=== PATIENT | male | born 1950 | race Caucasian/White ===

== ENCOUNTER → 2018-10-08 | Outpatient (CLI) | payer OTHER, MEDICARE ==
[~2018-10-08] MED LIST: ALLO100 PO; Azor 10-20 MG1 EACH; DOCU100 PO; FURO20 PO; INSULANPEN; LISI20 PO; Omeprazole20 M1; PROC5 PO; SUCR1 PO
[2018-10-08 16:13] LABS: BASOPHILS ABSOLUTE AUTO 0.02 K/mm3 (0.00-0.23); BASOPHILS PERCENT AUTO 1 % (0-2); EOSINOPHILS ABSOLUTE AUTO 0.06 K/mm3 (0.00-0.68); EOSINOPHILS PERCENT AUTO 2 % (0-6); Hematocrit 39.4 % (37.0-53.0); Hemoglobin 13.5 g/dL (13.5-17.5); IMMATURE GRAN ABSOLUTE AUTO 0.03 K/mm3 (0.00-0.10); IMMATURE GRAN PERCENT AUTO 1 % (0-1); LYMPHOCYTES ABSOLUTE AUTO 1.08 K/mm3 (0.84-5.20); LYMPHOCYTES PERCENT AUTO 42 % (21-46); MONOCYTES ABSOLUTE AUTO 0.06 K/mm3 (0.16-1.47); MONOCYTES PERCENT AUTO 2 % (4-13); Mean Corpuscular HGB Conc 34.3 g/dL (31.5-36.5); Mean Corpuscular Volume 88 fL (80-100); Mean Platelet Volume 11.3 fL (9.1-12.4); NEUTROPHILS ABSOLUTE AUTO 1.35 K/mm3 (1.96-9.15); NEUTROPHILS PERCENT AUTO 52 % (41-73); Platelet Count 153 K/mm3 (150-400); RDW Coefficient Variation 12.3 % (11.7-14.2); RDW Standard Deviation 39.5 fL (35.1-46.3)
[2018-10-08 16:30] LABS: Alanine Aminotransfer (ALT/SGP 82 U/L (12-78); Albumin, Blood 2.6 g/dL (3.4-5.0); Albumin/Globulin Ratio 0.6 (0.8-1.8); Alk Phos 133 U/L (50-136); Anion Gap 8 mmol/L (6-16); Aspartate Aminotrans (AST/SGOT 39 U/L (12-37); Bilirubin, Total 0.7 mg/dL (0.1-1.0); Blood Urea Nitrogen 21 mg/dL (8-24); Bun/Creatinine Ratio 27.6 (12.0-20.0); CO2, Blood 27 mmol/L (21-32); Calcium, Blood 8.9 mg/dL (8.5-10.1); Chloride, Blood 97 mmol/L (98-108); Creatinine, Blood 0.76 mg/dL (0.60-1.20); Globulin, Blood 4.1 g/dL (2.2-4.0); Glomerular Filtration Rate >60 (60-); Glucose, Blood 149 mg/dL (70-99); Potassium, Blood 3.7 mmol/L (3.5-5.5); Sodium, Blood 132 mmol/L (136-145); Total Protein, Blood 6.7 g/dL (6.4-8.2)
== END | disposition home or self-care (01) ==
LOC: LAB 15:36 → LAB SHORT 15:36
PROVIDERS: Internal Medicine Hematology & Oncology
DX: C25.1 Malignant neoplasm of body of pancreas (principal); R18.0 Malignant ascites; C78.6 Secondary malignant neoplasm of retroperitoneum and peritoneum; C77.2 Secondary and unspecified malignant neoplasm of intra-abdominal lymph nodes
CPT/HCPCS: 80053; 85025

== ENCOUNTER → 2018-10-09 | Outpatient (CLI) | payer OTHER, MEDICARE ==
[2018-10-09 16:42] LABS: International Normalized Ratio 1.14; Prothrombin Time Results 11.7 Sec (9.7-11.5)
== END | disposition home or self-care (01) ==
LOC: LAB SHORT 15:57 → LAB 15:57
PROVIDERS: Internal Medicine Hematology & Oncology
DX: Z79.01 Long term (current) use of anticoagulants (principal); Z51.81 Encounter for therapeutic drug level monitoring; C78.6 Secondary malignant neoplasm of retroperitoneum and peritoneum; C77.2 Secondary and unspecified malignant neoplasm of intra-abdominal lymph nodes; C25.1 Malignant neoplasm of body of pancreas; R18.0 Malignant ascites
CPT/HCPCS: 85610; 85730

== ENCOUNTER 2018-10-10 14:57 | Day surgery (SDC) | payer OTHER, MEDICARE | END 2018-10-10 22:54 | disposition home or self-care (01) | LOC: US 14:57 | PROC: 0W9G3ZZ Drainage of Peritoneal Cavity, Percutaneous Approach (ICD-10-PCS; principal; 2018-10-10) | DX: R18.0 Malignant ascites (principal) | CPT/HCPCS: 49083 ==

== ENCOUNTER 2018-10-12 11:58 | Emergency (ER) | payer SELFPAY ==
[~2018-10-12] VITALS: Ht 180.3 cm; Wt 111.1 kg
[2018-10-12] MEDS ORDERED: ALLO100 PO (12:27)
[2018-10-12] MEDS ORDERED: Azor 10-20 MG1 EACH (12:27)
[2018-10-12] MEDS ORDERED: FURO20 PO (12:28)
[2018-10-12] MEDS ORDERED: LISI20 PO (12:28)
[2018-10-12] MEDS ORDERED: DOCU100 PO (12:28)
[2018-10-12] MEDS ORDERED: INSULANPEN (12:28)
[2018-10-12] MEDS ORDERED: SUCR1 PO (12:29)
[2018-10-12] MEDS ORDERED: Omeprazole20 M1 (12:29)
[2018-10-12] MEDS ORDERED: PROC5 PO (12:29)
[2018-10-12 13:47] LABS: BASOPHILS ABSOLUTE AUTO 0.04 K/mm3 (0.00-0.23); BASOPHILS PERCENT AUTO 1 % (0-2); EOSINOPHILS ABSOLUTE AUTO 0.09 K/mm3 (0.00-0.68); EOSINOPHILS PERCENT AUTO 3 % (0-6); Hematocrit 38.8 % (37.0-53.0); IMMATURE GRAN ABSOLUTE AUTO 0.05 K/mm3 (0.00-0.10); IMMATURE GRAN PERCENT AUTO 2 % (0-1); LYMPHOCYTES ABSOLUTE AUTO 1.44 K/mm3 (0.84-5.20); LYMPHOCYTES PERCENT AUTO 45 % (21-46); MONOCYTES ABSOLUTE AUTO 0.49 K/mm3 (0.16-1.47); MONOCYTES PERCENT AUTO 16 % (4-13); Mean Corpuscular HGB 30.2 pg (26.0-34.0); Mean Corpuscular HGB Conc 33.5 g/dL (31.5-36.5); Mean Corpuscular Volume 90 fL (80-100); Mean Platelet Volume 10.9 fL (9.1-12.4); NEUTROPHILS ABSOLUTE AUTO 1.06 K/mm3 (1.96-9.15); NEUTROPHILS PERCENT AUTO 33 % (41-73); Platelet Count 93 K/mm3 (150-400); RDW Coefficient Variation 12.6 % (11.7-14.2); RDW Standard Deviation 41.4 fL (35.1-46.3); White Blood Cell Count 3.17 K/mm3 (4.00-11.30)
[2018-10-12 14:01] LABS: Alanine Aminotransfer (ALT/SGP 139 U/L (12-78); Albumin, Blood 2.2 g/dL (3.4-5.0); Albumin/Globulin Ratio 0.6 (0.8-1.8); Alk Phos 161 U/L (50-136); Anion Gap 7 mmol/L (6-16); Aspartate Aminotrans (AST/SGOT 92 U/L (12-37); Bilirubin, Total 0.3 mg/dL (0.1-1.0); Blood Urea Nitrogen 19 mg/dL (8-24); Bun/Creatinine Ratio 26.6 (12.0-20.0); CO2, Blood 27 mmol/L (21-32); Calcium, Blood 7.8 mg/dL (8.5-10.1); Chloride, Blood 103 mmol/L (98-108); Creatinine, Blood 0.72 mg/dL (0.60-1.20); Globulin, Blood 3.6 g/dL (2.2-4.0); Glomerular Filtration Rate >60 (60-); Glucose, Blood 124 mg/dL (70-99); Potassium, Blood 3.4 mmol/L (3.5-5.5); Sodium, Blood 137 mmol/L (136-145); Total Protein, Blood 5.8 g/dL (6.4-8.2)
[2018-10-12 14:43] LABS: International Normalized Ratio 1.17; Prothrombin Time Results 11.9 Sec (9.7-11.5)
== END 2018-10-12 19:30 | disposition home or self-care (01) ==
LOC: ER 11:58
PROVIDERS: Emergency Medicine; Physician Assistant
DX: R18.8 Other ascites (principal); C25.9 Malignant neoplasm of pancreas, unspecified; Z88.8 Allergy status to other drugs, medicaments and biological substances; Z79.899 Other long term (current) drug therapy; Z79.4 Long term (current) use of insulin
CPT/HCPCS: 49083; 80053; 83690; 85025; 85610; 85730; 93005; 93010; J1170; J2405; P9041

== ENCOUNTER 2018-10-14 00:12 | Day surgery (SDC) | payer OTHER | END 2018-10-14 22:44 | disposition home or self-care (01) | LOC: US 00:12 | DX: C25.1 Malignant neoplasm of body of pancreas (principal); C78.6 Secondary malignant neoplasm of retroperitoneum and peritoneum; R18.0 Malignant ascites; C77.2 Secondary and unspecified malignant neoplasm of intra-abdominal lymph nodes | CPT/HCPCS: 49083 ==

== ENCOUNTER 2018-10-18 14:43 | Day surgery (SDC) | payer OTHER ==
[2018-11-18] MEDS ORDERED: CHEMOTHERAPY (11:25)
[2018-11-28] MEDS ORDERED: ALLO100 PO (13:07)
[2018-11-28] MEDS ORDERED: LISI20 PO (13:10)
[2018-11-28] MEDS ORDERED: DOCU100 PO (13:10)
[2018-11-28] MEDS ORDERED: AMLO10 PO (13:12)
[2018-11-28] MEDS ORDERED: OXYC5 PO (13:13)
[2018-11-28] MEDS ORDERED: BENADRYL25 MG PO (13:14)
[2018-11-28] MEDS ORDERED: NAPR220 PO (13:15)
[2018-11-28] MEDS ORDERED: Omeprazole20 M1 PO (13:16)
[2018-11-28] MEDS ORDERED: METO10 PO (13:17)
[2018-11-28] MEDS ORDERED: CRANBERRY250 MG PO (13:18)
[2018-11-28] MEDS ORDERED: ERGO400 PO (13:18)
[2018-11-28] MEDS ORDERED: Multivitamin1 EAC1 PO (13:19)
[2018-11-28] MEDS ORDERED: HEP LOCK F IV (13:20)
[2018-11-28] MEDS ORDERED: SUCR1 PO (13:31)
[2018-11-28] MEDS ORDERED: Lomotil Tablet1 EACH PO (13:34)
== END 2018-10-18 23:04 | disposition home or self-care (01) ==
LOC: US 14:43
DX: C78.6 Secondary malignant neoplasm of retroperitoneum and peritoneum (principal); R18.0 Malignant ascites; C25.1 Malignant neoplasm of body of pancreas; C77.2 Secondary and unspecified malignant neoplasm of intra-abdominal lymph nodes; K86.81 Exocrine pancreatic insufficiency
CPT/HCPCS: 49083

== ENCOUNTER 2018-10-25 13:44 | Day surgery (SDC) | payer OTHER ==
[2018-11-18] MEDS ORDERED: CHEMOTHERAPY (11:25)
[2018-11-28] MEDS ORDERED: ALLO100 PO (13:07)
[2018-11-28] MEDS ORDERED: LISI20 PO (13:10)
[2018-11-28] MEDS ORDERED: DOCU100 PO (13:10)
[2018-11-28] MEDS ORDERED: AMLO10 PO (13:12)
[2018-11-28] MEDS ORDERED: OXYC5 PO (13:13)
[2018-11-28] MEDS ORDERED: BENADRYL25 MG PO (13:14)
[2018-11-28] MEDS ORDERED: NAPR220 PO (13:15)
[2018-11-28] MEDS ORDERED: Omeprazole20 M1 PO (13:16)
[2018-11-28] MEDS ORDERED: METO10 PO (13:17)
[2018-11-28] MEDS ORDERED: ERGO400 PO (13:18)
[2018-11-28] MEDS ORDERED: CRANBERRY250 MG PO (13:18)
[2018-11-28] MEDS ORDERED: Multivitamin1 EAC1 PO (13:19)
[2018-11-28] MEDS ORDERED: HEP LOCK F IV (13:20)
[2018-11-28] MEDS ORDERED: SUCR1 PO (13:31)
[2018-11-28] MEDS ORDERED: Lomotil Tablet1 EACH PO (13:34)
== END 2018-10-25 22:40 | disposition home or self-care (01) ==
LOC: US 13:44
DX: C25.1 Malignant neoplasm of body of pancreas (principal); R18.0 Malignant ascites; C78.6 Secondary malignant neoplasm of retroperitoneum and peritoneum; C77.2 Secondary and unspecified malignant neoplasm of intra-abdominal lymph nodes; K86.81 Exocrine pancreatic insufficiency
CPT/HCPCS: 49083

== ENCOUNTER → 2018-10-29 | Outpatient (CLI) | payer OTHER ==
[~2018-10-29] MED LIST changes: +ACET325 PO; +AMLO10 PO; +Aspercreme 1035.4 GM TOP; +BENADRYL25 MG PO; +CHEMOTHERAPY; +CRANBERRY250 MG PO; +ERGO400 PO; +FENTANYL TD; +HEP LOCK F IV; +Humalog100 UNIT/3 SC; +INSULANPEN SC; +LORA.5 PO; +Lomotil Tablet1 EACH PO; +METO10 PO; +METO25 PO; +Melatonin5 M1 PO; +Multivitamin1 EAC1 PO; +NAPR220 PO; +ONDA4ODT; +OXYC5 PO; +Omeprazole20 M1 PO; +PANT40 PO; +PROM25 PO; +Senna-Docusate1 EACH PO; +XARELTO20 MG PO
[2018-10-29 12:32] LABS: Hematocrit 41.3 % (37.0-53.0); Hemoglobin 14.1 g/dL (13.5-17.5); Mean Corpuscular HGB 30.1 pg (26.0-34.0); Mean Corpuscular HGB Conc 34.1 g/dL (31.5-36.5); Mean Corpuscular Volume 88 fL (80-100); Mean Platelet Volume 10.9 fL (9.1-12.4); Platelet Count 121 K/mm3 (150-400); RDW Standard Deviation 43.1 fL (35.1-46.3); Red Blood Cell Count 4.69 M/mm3 (4.30-5.90)
[2018-10-29 12:45] LABS: Alanine Aminotransfer (ALT/SGP 64 U/L (12-78); Albumin, Blood 2.4 g/dL (3.4-5.0); Albumin/Globulin Ratio 0.7 (0.8-1.8); Alk Phos 217 U/L (50-136); Anion Gap 10 mmol/L (6-16); Aspartate Aminotrans (AST/SGOT 41 U/L (12-37); Bilirubin, Total 0.6 mg/dL (0.1-1.0); Blood Urea Nitrogen 15 mg/dL (8-24); Bun/Creatinine Ratio 17.4 (12.0-20.0); CO2, Blood 23 mmol/L (21-32); Calcium, Blood 7.9 mg/dL (8.5-10.1); Chloride, Blood 96 mmol/L (98-108); Creatinine, Blood 0.86 mg/dL (0.60-1.20); Globulin, Blood 3.5 g/dL (2.2-4.0); Glomerular Filtration Rate >60 (60-); Glucose, Blood 125 mg/dL (70-99); Sodium, Blood 129 mmol/L (136-145); Total Protein, Blood 5.9 g/dL (6.4-8.2)
[2018-10-29 12:53] LABS: BAND PERCENT MAN 3 % (0-8); BASOPHILS ABSOLUTE MAN 0.13 K/mm3 (0.00-0.23); BASOPHILS PERCENT MAN 1 % (0-2); EOSINOPHILS ABSOLUTE MAN 0.13 K/mm3 (0.00-0.68); EOSINOPHILS PERCENT MAN 1 % (0-6); LYMPHOCYTES ABSOLUTE MAN 1.08 K/mm3 (0.84-5.20); LYMPHOCYTES PERCENT MAN 8 % (21-46); METAMYELOCYTE PERCENT MAN 3 % (0-0); MONOCYTES ABSOLUTE MAN 1.49 K/mm3 (0.16-1.47); MONOCYTES PERCENT MAN 11 % (4-13); NEUTROPHILS ABSOLUTE MAN 10.33 K/mm3 (1.96-9.15); SEG NEUTROPHILS PERCENT MAN 73 % (41-73); TOTAL CELLS COUNTED 100
== END | disposition home or self-care (01) ==
LOC: LAB 12:12 → LAB SHORT 12:12
PROVIDERS: Internal Medicine Hematology & Oncology
DX: C25.1 Malignant neoplasm of body of pancreas (principal); C78.6 Secondary malignant neoplasm of retroperitoneum and peritoneum; C77.2 Secondary and unspecified malignant neoplasm of intra-abdominal lymph nodes; D70.1 Agranulocytosis secondary to cancer chemotherapy; T45.1X5A Adverse effect of antineoplastic and immunosuppressive drugs, initial encounter; R18.0 Malignant ascites
CPT/HCPCS: 80053; 85025; 86301

== ENCOUNTER 2018-11-01 00:32 | Day surgery (SDC) | payer OTHER ==
[~2018-11-01 00:32] MED LIST changes: -ACET325 PO; -AMLO10 PO; -Aspercreme 1035.4 GM TOP; -BENADRYL25 MG PO; -CHEMOTHERAPY; -CRANBERRY250 MG PO; -ERGO400 PO; -FENTANYL TD; -HEP LOCK F IV; -Humalog100 UNIT/3 SC; -INSULANPEN SC; -LORA.5 PO; -Lomotil Tablet1 EACH PO; -METO10 PO; -METO25 PO; -Melatonin5 M1 PO; -Multivitamin1 EAC1 PO; -NAPR220 PO; -ONDA4ODT; -OXYC5 PO; -Omeprazole20 M1 PO; -PANT40 PO; -PROM25 PO; -Senna-Docusate1 EACH PO; -XARELTO20 MG PO
[2018-11-18] MEDS ORDERED: CHEMOTHERAPY (11:25)
[2018-11-28] MEDS ORDERED: ALLO100 PO (13:07)
[2018-11-28] MEDS ORDERED: LISI20 PO (13:10)
[2018-11-28] MEDS ORDERED: DOCU100 PO (13:10)
[2018-11-28] MEDS ORDERED: AMLO10 PO (13:12)
[2018-11-28] MEDS ORDERED: OXYC5 PO (13:13)
[2018-11-28] MEDS ORDERED: BENADRYL25 MG PO (13:14)
[2018-11-28] MEDS ORDERED: NAPR220 PO (13:15)
[2018-11-28] MEDS ORDERED: Omeprazole20 M1 PO (13:16)
[2018-11-28] MEDS ORDERED: METO10 PO (13:17)
[2018-11-28] MEDS ORDERED: ERGO400 PO (13:18)
[2018-11-28] MEDS ORDERED: CRANBERRY250 MG PO (13:18)
[2018-11-28] MEDS ORDERED: Multivitamin1 EAC1 PO (13:19)
[2018-11-28] MEDS ORDERED: HEP LOCK F IV (13:20)
[2018-11-28] MEDS ORDERED: SUCR1 PO (13:31)
[2018-11-28] MEDS ORDERED: Lomotil Tablet1 EACH PO (13:34)
== END 2018-11-01 22:48 | disposition home or self-care (01) ==
LOC: US 00:32
DX: C78.6 Secondary malignant neoplasm of retroperitoneum and peritoneum (principal); R18.0 Malignant ascites; C25.1 Malignant neoplasm of body of pancreas; K86.81 Exocrine pancreatic insufficiency; C77.2 Secondary and unspecified malignant neoplasm of intra-abdominal lymph nodes
CPT/HCPCS: 49083

== ENCOUNTER → 2018-11-04 | Outpatient (CLI) | payer OTHER, MEDICARE ==
[~2018-11-04] MED LIST changes: +ACET325 PO; +AMLO10 PO; +Aspercreme 1035.4 GM TOP; +BENADRYL25 MG PO; +CHEMOTHERAPY; +CRANBERRY250 MG PO; +ERGO400 PO; +FENTANYL TD; +HEP LOCK F IV; +Humalog100 UNIT/3 SC; +INSULANPEN SC; +LORA.5 PO; +Lomotil Tablet1 EACH PO; +METO10 PO; +METO25 PO; +Melatonin5 M1 PO; +Multivitamin1 EAC1 PO; +NAPR220 PO; +ONDA4ODT; +OXYC5 PO; +Omeprazole20 M1 PO; +PANT40 PO; +PROM25 PO; +Senna-Docusate1 EACH PO; +XARELTO20 MG PO
[2018-11-04 16:14] LABS: International Normalized Ratio 1.19; Prothrombin Time Results 12.1 Sec (9.7-11.5)
== END | disposition home or self-care (01) ==
LOC: LAB 15:40 → LAB SHORT 15:40
PROVIDERS: Internal Medicine Hematology & Oncology
DX: Z79.01 Long term (current) use of anticoagulants (principal); Z51.81 Encounter for therapeutic drug level monitoring; C25.1 Malignant neoplasm of body of pancreas; R18.0 Malignant ascites; C78.6 Secondary malignant neoplasm of retroperitoneum and peritoneum; C77.2 Secondary and unspecified malignant neoplasm of intra-abdominal lymph nodes; Z79.899 Other long term (current) drug therapy
CPT/HCPCS: 85610; 85730

== ENCOUNTER → 2018-11-07 | Outpatient (CLI) | payer OTHER, MEDICARE ==
[2018-11-07 15:49] LABS: Hematocrit 40.3 % (37.0-53.0); Hemoglobin 13.8 g/dL (13.5-17.5); LYMPHOCYTES PERCENT AUTO 20 % (21-46); MONOCYTES ABSOLUTE AUTO 0.79 K/mm3 (0.16-1.47); MONOCYTES PERCENT AUTO 10 % (4-13); Mean Corpuscular HGB 30.2 pg (26.0-34.0); Mean Corpuscular HGB Conc 34.2 g/dL (31.5-36.5); Mean Corpuscular Volume 88 fL (80-100); Mean Platelet Volume 12.3 fL (9.1-12.4); NRBC ABSOLUTE 0.04 K/mm3 (0.00-0.02); NRBC Auto 0.5 /100 WBC (0.0-0.2); Platelet Count 119 K/mm3 (150-400); RDW Coefficient Variation 14.3 % (11.7-14.2); RDW Standard Deviation 45.2 fL (35.1-46.3); Red Blood Cell Count 4.57 M/mm3 (4.30-5.90); White Blood Cell Count 7.57 K/mm3 (4.00-11.30)
[2018-11-07 16:00] LABS: Alanine Aminotransfer (ALT/SGP 107 U/L (12-78); Albumin, Blood 2.5 g/dL (3.4-5.0); Albumin/Globulin Ratio 0.7 (0.8-1.8); Alk Phos 208 U/L (50-136); Anion Gap 10 mmol/L (6-16); Aspartate Aminotrans (AST/SGOT 73 U/L (12-37); Bilirubin, Total 0.6 mg/dL (0.1-1.0); Blood Urea Nitrogen 14 mg/dL (8-24); Bun/Creatinine Ratio 19.2 (12.0-20.0); CO2, Blood 27 mmol/L (21-32); Calcium, Blood 8.4 mg/dL (8.5-10.1); Chloride, Blood 98 mmol/L (98-108); Creatinine, Blood 0.73 mg/dL (0.60-1.20); Globulin, Blood 3.4 g/dL (2.2-4.0); Glomerular Filtration Rate >60 (60-); Glucose, Blood 109 mg/dL (70-99); Potassium, Blood 3.7 mmol/L (3.5-5.5); Sodium, Blood 135 mmol/L (136-145); Total Protein, Blood 5.9 g/dL (6.4-8.2)
[2018-11-07 16:13] LABS: BASOPHILS ABSOLUTE AUTO 0.03 K/mm3 (0.00-0.23); BASOPHILS PERCENT AUTO 0 % (0-2); EOSINOPHILS ABSOLUTE AUTO 0.05 K/mm3 (0.00-0.68); EOSINOPHILS PERCENT AUTO 1 % (0-6); IMMATURE GRAN ABSOLUTE AUTO 0.58 K/mm3 (0.00-0.10); IMMATURE GRAN PERCENT AUTO 8 % (0-1); NEUTROPHILS ABSOLUTE AUTO 4.62 K/mm3 (1.96-9.15); NEUTROPHILS PERCENT AUTO 61 % (41-73)
== END | disposition home or self-care (01) ==
LOC: LAB 15:28 → LAB SHORT 15:28
PROVIDERS: Internal Medicine Hematology & Oncology
DX: C25.1 Malignant neoplasm of body of pancreas (principal); C77.2 Secondary and unspecified malignant neoplasm of intra-abdominal lymph nodes; C78.6 Secondary malignant neoplasm of retroperitoneum and peritoneum
CPT/HCPCS: 80053; 85025; 86301

== ENCOUNTER 2018-11-08 13:36 | Day surgery (SDC) | payer OTHER, MEDICARE ==
[~2018-11-08 13:36] MED LIST changes: -ACET325 PO; -AMLO10 PO; -Aspercreme 1035.4 GM TOP; -BENADRYL25 MG PO; -CHEMOTHERAPY; -CRANBERRY250 MG PO; -ERGO400 PO; -FENTANYL TD; -HEP LOCK F IV; -Humalog100 UNIT/3 SC; -INSULANPEN SC; -LORA.5 PO; -Lomotil Tablet1 EACH PO; -METO10 PO; -METO25 PO; -Melatonin5 M1 PO; -Multivitamin1 EAC1 PO; -NAPR220 PO; -ONDA4ODT; -OXYC5 PO; -Omeprazole20 M1 PO; -PANT40 PO; -PROM25 PO; -Senna-Docusate1 EACH PO; -XARELTO20 MG PO
[2018-11-18] MEDS ORDERED: CHEMOTHERAPY (11:25)
[2018-11-28] MEDS ORDERED: ALLO100 PO (13:07)
[2018-11-28] MEDS ORDERED: LISI20 PO (13:10)
[2018-11-28] MEDS ORDERED: DOCU100 PO (13:10)
[2018-11-28] MEDS ORDERED: AMLO10 PO (13:12)
[2018-11-28] MEDS ORDERED: OXYC5 PO (13:13)
[2018-11-28] MEDS ORDERED: BENADRYL25 MG PO (13:14)
[2018-11-28] MEDS ORDERED: NAPR220 PO (13:15)
[2018-11-28] MEDS ORDERED: Omeprazole20 M1 PO (13:16)
[2018-11-28] MEDS ORDERED: METO10 PO (13:17)
[2018-11-28] MEDS ORDERED: CRANBERRY250 MG PO (13:18)
[2018-11-28] MEDS ORDERED: ERGO400 PO (13:18)
[2018-11-28] MEDS ORDERED: Multivitamin1 EAC1 PO (13:19)
[2018-11-28] MEDS ORDERED: HEP LOCK F IV (13:20)
[2018-11-28] MEDS ORDERED: SUCR1 PO (13:31)
[2018-11-28] MEDS ORDERED: Lomotil Tablet1 EACH PO (13:34)
== END 2018-11-08 23:58 | disposition home or self-care (01) ==
LOC: US 13:36
PROC: 0W9G3ZZ Drainage of Peritoneal Cavity, Percutaneous Approach (ICD-10-PCS; principal; 2018-11-08)
DX: R18.0 Malignant ascites (principal); C25.1 Malignant neoplasm of body of pancreas; C78.6 Secondary malignant neoplasm of retroperitoneum and peritoneum; C77.2 Secondary and unspecified malignant neoplasm of intra-abdominal lymph nodes
CPT/HCPCS: 49083

== ENCOUNTER 2018-11-15 13:44 | Day surgery (SDC) | payer OTHER ==
[2018-11-18] MEDS ORDERED: CHEMOTHERAPY (11:25)
[2018-11-28] MEDS ORDERED: ALLO100 PO (13:07)
[2018-11-28] MEDS ORDERED: LISI20 PO (13:10)
[2018-11-28] MEDS ORDERED: DOCU100 PO (13:10)
[2018-11-28] MEDS ORDERED: AMLO10 PO (13:12)
[2018-11-28] MEDS ORDERED: OXYC5 PO (13:13)
[2018-11-28] MEDS ORDERED: BENADRYL25 MG PO (13:14)
[2018-11-28] MEDS ORDERED: NAPR220 PO (13:15)
[2018-11-28] MEDS ORDERED: Omeprazole20 M1 PO (13:16)
[2018-11-28] MEDS ORDERED: METO10 PO (13:17)
[2018-11-28] MEDS ORDERED: CRANBERRY250 MG PO (13:18)
[2018-11-28] MEDS ORDERED: ERGO400 PO (13:18)
[2018-11-28] MEDS ORDERED: Multivitamin1 EAC1 PO (13:19)
[2018-11-28] MEDS ORDERED: HEP LOCK F IV (13:20)
[2018-11-28] MEDS ORDERED: SUCR1 PO (13:31)
[2018-11-28] MEDS ORDERED: Lomotil Tablet1 EACH PO (13:34)
== END 2018-11-15 23:08 | disposition home or self-care (01) ==
LOC: US 13:44
DX: C25.1 Malignant neoplasm of body of pancreas (principal); C78.6 Secondary malignant neoplasm of retroperitoneum and peritoneum; C77.2 Secondary and unspecified malignant neoplasm of intra-abdominal lymph nodes; R18.0 Malignant ascites
CPT/HCPCS: 49083

== ENCOUNTER 2018-11-19 10:03 | Day surgery (SDC) | payer OTHER ==
[~2018-11-19] VITALS: Ht 180.3 cm; Wt 90.7 kg
[~2018-11-19 10:03] MED LIST changes: +CHEMOTHERAPY
--- NOTE | 2018-11-19 11:46 | NUR ---
Surgical site prepped with 2% Chlorhexidine cloth wipe. History, Chart, Medications and Allergies reviewed before start of procedure. Lungs clear T/O to Auscultation. Patient confirms NPO status and agrees with scheduled surgery. Pre-Op teaching done. Pt verbalizes understanding. Patient reports completing Chlorhexadine shower X2 prior to admission to hospital. Patient States Post-Procedure ride home has been arranged.
--- NOTE | 2018-11-19 14:06 | NUR ---
11/19/18 140Ashley Hallman PT WAS GIVEN 2 GRAMS ANCEF AT [address] IN [address]ARM BY DR. CARLSON
--- NOTE | 2018-11-19 15:05 | NUR ---
INTO STEP VIA PORSCHE. PT A&OX3-DENIES PAIN OR NAUSEA AT THIS TIME.OCCLUSIVE DRESSING AND 4X4 TO RIGHT NECK AND CHEST-C/D/I.
--- NOTE | 2018-11-19 15:46 | NUR ---
Dressing to procedure site clean, dry, intact with no visible drainage, swelling, erythema or bruising noted. Discharge instructions reviewed with patient. Patient verbalizes understanding. Copy given to patient to take home.Discharged via wheelchair to private car for ride home.
[2018-11-28] MEDS ORDERED: ALLO100 PO (13:07)
[2018-11-28] MEDS ORDERED: DOCU100 PO (13:10)
[2018-11-28] MEDS ORDERED: LISI20 PO (13:10)
[2018-11-28] MEDS ORDERED: AMLO10 PO (13:12)
[2018-11-28] MEDS ORDERED: OXYC5 PO (13:13)
[2018-11-28] MEDS ORDERED: BENADRYL25 MG PO (13:14)
[2018-11-28] MEDS ORDERED: NAPR220 PO (13:15)
[2018-11-28] MEDS ORDERED: Omeprazole20 M1 PO (13:16)
[2018-11-28] MEDS ORDERED: METO10 PO (13:17)
[2018-11-28] MEDS ORDERED: ERGO400 PO (13:18)
[2018-11-28] MEDS ORDERED: CRANBERRY250 MG PO (13:18)
[2018-11-28] MEDS ORDERED: Multivitamin1 EAC1 PO (13:19)
[2018-11-28] MEDS ORDERED: HEP LOCK F IV (13:20)
[2018-11-28] MEDS ORDERED: SUCR1 PO (13:31)
[2018-11-28] MEDS ORDERED: Lomotil Tablet1 EACH PO (13:34)
== END 2018-11-19 15:48 | disposition home or self-care (01) ==
LOC: ORSCMMR 10:03
PROVIDERS: Surgery
PROC: B5131ZA Fluoroscopy of Right Jugular Veins using Low Osmolar Contrast, Guidance (ICD-10-PCS; principal; 2018-11-19 11:45)
PROC: 05HM33Z Insertion of Infusion Device into Right Internal Jugular Vein, Percutaneous Approach (ICD-10-PCS; principal; 2018-11-19 11:45)
DX: C25.1 Malignant neoplasm of body of pancreas (principal); C77.2 Secondary and unspecified malignant neoplasm of intra-abdominal lymph nodes; E11.9 Type 2 diabetes mellitus without complications; K21.9 Gastro-esophageal reflux disease without esophagitis; Z79.899 Other long term (current) drug therapy
CPT/HCPCS: 77001; 82947; C1788; J0330; J0690; J1100; J1642; J2250; J2405; J3010; J7120

== ENCOUNTER 2018-11-22 13:39 | Day surgery (SDC) | payer OTHER ==
[2018-11-28] MEDS ORDERED: ALLO100 PO (13:07)
[2018-11-28] MEDS ORDERED: LISI20 PO (13:10)
[2018-11-28] MEDS ORDERED: DOCU100 PO (13:10)
[2018-11-28] MEDS ORDERED: AMLO10 PO (13:12)
[2018-11-28] MEDS ORDERED: OXYC5 PO (13:13)
[2018-11-28] MEDS ORDERED: BENADRYL25 MG PO (13:14)
[2018-11-28] MEDS ORDERED: NAPR220 PO (13:15)
[2018-11-28] MEDS ORDERED: Omeprazole20 M1 PO (13:16)
[2018-11-28] MEDS ORDERED: METO10 PO (13:17)
[2018-11-28] MEDS ORDERED: CRANBERRY250 MG PO (13:18)
[2018-11-28] MEDS ORDERED: ERGO400 PO (13:18)
[2018-11-28] MEDS ORDERED: Multivitamin1 EAC1 PO (13:19)
[2018-11-28] MEDS ORDERED: HEP LOCK F IV (13:20)
[2018-11-28] MEDS ORDERED: SUCR1 PO (13:31)
[2018-11-28] MEDS ORDERED: Lomotil Tablet1 EACH PO (13:34)
== END 2018-11-22 22:51 | disposition home or self-care (01) ==
LOC: US 13:39
DX: C25.1 Malignant neoplasm of body of pancreas (principal); C78.6 Secondary malignant neoplasm of retroperitoneum and peritoneum; C77.2 Secondary and unspecified malignant neoplasm of intra-abdominal lymph nodes; R18.0 Malignant ascites
CPT/HCPCS: 49083

== ENCOUNTER 2018-11-28 16:14 | Inpatient (IN) | payer MEDICARE ==
[~2018-11-28] VITALS: Ht 182.9 cm; Wt 80.2 kg
[~2018-11-28 16:14] MED LIST changes: +AMLO10 PO; +BENADRYL25 MG PO; +CRANBERRY250 MG PO; +ERGO400 PO; +HEP LOCK F IV; +Lomotil Tablet1 EACH PO; +METO10 PO; +Multivitamin1 EAC1 PO; +NAPR220 PO; +OXYC5 PO; +Omeprazole20 M1 PO
[2018-11-28 17:57] LABS: International Normalized Ratio 1.3; Prothrombin Time Results 13.5 Sec (9.7-11.5)
[2018-11-28 18:49] LABS: Source, Urine Clean Catch
[2018-11-28 19:16] LABS: Blood, Urine 1+ (Neg); Glucose Qualitative, Urine Neg (Neg); Ketones, Urine 2+ (Neg); Leukocyte Esterase, Urine 1+ (Neg); Nitrite, Urine Neg (Neg); Protein, Urine 2+ (Neg); Specific Gravity, Urine 1.015 (1.003-1.022); Urobilinogen, Urine 2+ (Normal)
[2018-11-28 19:30] LABS: Bilirubin, Urine 2+ (Neg)
[2018-11-28 19:33] LABS: Appearance, Urine Hazy (Clear); Color, Urine Yellow (P-Yellow)
[2018-11-28 19:34] LABS: Bacteria Mod /hpf; Mucus Light (0-Heavy); Squamous Epithelial Cells Rare /hpf (Few)
[2018-11-28] MEDS ORDERED: PROM25 PO (21:23)
[2018-11-28] MEDS ORDERED: Senna-Docusate1 EACH PO (21:23)
[2018-11-28] MEDS ORDERED: LORA.5 PO (21:24)
[2018-11-28] MEDS ORDERED: XARELTO20 MG PO (21:25)
[2018-11-28] MEDS ORDERED: FENTANYL TD (21:27)
[2018-11-28] MEDS ORDERED: ONDA4ODT (22:34)
[2018-11-29 04:21] LABS: Hematocrit 30.4 % (37.0-53.0); Hemoglobin 10.2 g/dL (13.5-17.5); Mean Corpuscular HGB 30.1 pg (26.0-34.0); Mean Corpuscular HGB Conc 33.6 g/dL (31.5-36.5); Mean Corpuscular Volume 90 fL (80-100); Mean Platelet Volume 10.9 fL (9.1-12.4); NRBC ABSOLUTE 0.22 K/mm3 (0.00-0.02); NRBC Auto 3.2 /100 WBC (0.0-0.2); RDW Coefficient Variation 15.7 % (11.7-14.2); RDW Standard Deviation 50.3 fL (35.1-46.3); Red Blood Cell Count 3.39 M/mm3 (4.30-5.90); White Blood Cell Count 6.79 K/mm3 (4.00-11.30)
[2018-11-29 04:24] LABS: Platelet Count 25 K/mm3 (150-400)
[2018-11-29 04:38] LABS: Alanine Aminotransfer (ALT/SGP 71 U/L (12-78); Albumin, Blood 1.8 g/dL (3.4-5.0); Albumin/Globulin Ratio 0.6 (0.8-1.8); Alk Phos 256 U/L (50-136); Anion Gap 11 mmol/L (6-16); Aspartate Aminotrans (AST/SGOT 50 U/L (12-37); Bilirubin, Total 0.8 mg/dL (0.1-1.0); Blood Urea Nitrogen 21 mg/dL (8-24); Bun/Creatinine Ratio 31.5 (12.0-20.0); CO2, Blood 26 mmol/L (21-32); Calcium, Blood 7.8 mg/dL (8.5-10.1); Chloride, Blood 99 mmol/L (98-108); Creatinine, Blood 0.67 mg/dL (0.60-1.20); Globulin, Blood 3.1 g/dL (2.2-4.0); Glomerular Filtration Rate >60 (60-); Glucose, Blood 108 mg/dL (70-99); Potassium, Blood 3.8 mmol/L (3.5-5.5); Sodium, Blood 136 mmol/L (136-145); Total Protein, Blood 4.9 g/dL (6.4-8.2)
[2018-11-29 04:51] LABS: BAND PERCENT MAN 18 % (0-8); BASOPHILS PERCENT MAN 0 % (0-2); EOSINOPHILS PERCENT MAN 0 % (0-6); LYMPHOCYTES ABSOLUTE MAN 0.88 K/mm3 (0.84-5.20); LYMPHOCYTES PERCENT MAN 13 % (21-46); METAMYELOCYTE ABSOLUTE MAN 0.33 K/mm3 (0.00-0.00); METAMYELOCYTE PERCENT MAN 5 % (0-0); MONOCYTES ABSOLUTE MAN 0.88 K/mm3 (0.16-1.47); MONOCYTES PERCENT MAN 13 % (4-13); MYELOCYTE ABSOLUTE MAN 0.95 K/mm3 (0.00-0.00); MYELOCYTE PERCENT MAN 14 % (0-0); NEUTROPHILS ABSOLUTE MAN 3.59 K/mm3 (1.96-9.15); SEG NEUTROPHILS PERCENT MAN 35 % (41-73); TOTAL CELLS COUNTED 100
[2018-11-29 04:52] LABS: PROMYELOCYTE ABSOLUTE MAN 0.13 K/mm3 (0.00-0.00); PROMYELOCYTE PERCENT MAN 2 % (0-0)
--- NOTE | 2018-11-29 05:16 | NUR ---
SHIFT SUMMARY PT ADMITTED FOR WEAKNESS, PANCREATIC CANCER HISTORY. LAST CHEMO TREATMENT LAST SUNDAY. PT HAS MEDIPORT ACCESSED, RECEIVED IVF'S AND IV ZOFRAN PRIOR TO ARRIVAL ON UNIT. PT NOTED TO HAVE SWOLLEN RIGHT ARM, STATES IT STARTED SWELLING UP AFTER CHEMO WAS DONE 2 WEEKS AGO IN THAT ARM. EDEMA ALSO NOTED IN LE'S BILAT. PT UP TO COMMODE WITH ASSIST OF 2 DUE TO WEAKNESS, NOTED TO HAVE BRIGHT RED BLOOD EITHER IN STOOL OR IN URINE, UNABLE TO TELL WHICH DUE TO BEING MIXED TOGETHER. PLT COUNT DOWN TO 25 THIS AM, WAS 31 YESTERDAY. HGB DOWN 10.2 FROM 12.1 YESTERDAY. HOSPITALIST NOTIFIED OF THESE FINDINGS AND ORDERS RECEIVED. PT RESTING AT THIS TIME, WILL CONTINUE TO MONITOR.
[2018-11-29 09:10] LABS: Hematocrit 30.7 % (37.0-53.0); Hemoglobin 10.4 g/dL (13.5-17.5); Mean Corpuscular HGB 30.5 pg (26.0-34.0); Mean Corpuscular HGB Conc 33.9 g/dL (31.5-36.5); Mean Corpuscular Volume 90 fL (80-100); Mean Platelet Volume 11.9 fL (9.1-12.4); NRBC ABSOLUTE 0.28 K/mm3 (0.00-0.02); NRBC Auto 3.3 /100 WBC (0.0-0.2); RDW Coefficient Variation 15.9 % (11.7-14.2); RDW Standard Deviation 50.8 fL (35.1-46.3); Red Blood Cell Count 3.41 M/mm3 (4.30-5.90)
[2018-11-29 09:31] LABS: Platelet Count 28 K/mm3 (150-400)
[2018-11-29 10:05] LABS: BAND PERCENT MAN 16 % (0-8); BASOPHILS PERCENT MAN 0 % (0-2); EOSINOPHILS PERCENT MAN 0 % (0-6); LYMPHOCYTES ABSOLUTE MAN 1.44 K/mm3 (0.84-5.20); LYMPHOCYTES PERCENT MAN 17 % (21-46); METAMYELOCYTE ABSOLUTE MAN 0.34 K/mm3 (0.00-0.00); METAMYELOCYTE PERCENT MAN 4 % (0-0); MONOCYTES ABSOLUTE MAN 0.34 K/mm3 (0.16-1.47); MONOCYTES PERCENT MAN 4 % (4-13); MYELOCYTE ABSOLUTE MAN 0.59 K/mm3 (0.00-0.00); MYELOCYTE PERCENT MAN 7 % (0-0); NEUTROPHILS ABSOLUTE MAN 5.44 K/mm3 (1.96-9.15); PROMYELOCYTE ABSOLUTE MAN 0.34 K/mm3 (0.00-0.00); PROMYELOCYTE PERCENT MAN 4 % (0-0); SEG NEUTROPHILS PERCENT MAN 48 % (41-73); TOTAL CELLS COUNTED 100
--- NOTE | 2018-11-29 10:12 | NUR ---
Echocvardiogram completed.
--- NOTE | 2018-11-29 11:17 | NUR ---
PLATELETS OF 28- LATE ENTRY DR. ANTHONY CALLED THIS AM AFTER CRITICAL VALUE CALLED FROM LAB OF 28 PLT COUNT. CALL PLACED AT 0930. ORDERED 1 UNIT OF PLATELETS. PLATELETS GIVEN & NO SIGNS OF REACTION NOTED. WILL CONTINUE TO MONITOR.
--- NOTE | 2018-11-29 12:36 | NUR ---
DR. ANTHONY CALLED- PT CHEST PAIN PT STATED HE STILL FEELS LIKE HE CANNOT SWALLOW WELL AND THE LIQUID IS NOT MAKING IT PAST HIS CHEST. PT REPORT NON RADIATING CHEST PAIN. PT STATES IT HAS FELT THIS WAS FOR "A WHILE" BEFORE HE CAME INTO THE HOSPITAL. SPEECH THERAPY STATED THAT SHE DIDN'T THINK IT WAS A SWALLOWING PROBLEM AND A GI CONSULT MAY BE NEEDED. DR. ANTHONY NOTIFIED.
--- NOTE | 2018-11-29 13:56 | NUR ---
PT NAUSEATED DR. ANTHONY CALLED & INFORMED OF PT NAUSEA & DIFFICULTY SWALLOWING. ZOFRAN ORDERED FOR PT & GIVEN BEFORE PARACENTESIS
--- NOTE | 2018-11-29 14:18 | NUR ---
PARACENTESIS CANCELLED. NOT ENOUGH FLUID WAS SEEN IN PT ABD FOR PARACENTESIS. PT RETURNED TO ROOM & REPOSITIONED IN BED.
--- NOTE | 2018-11-29 17:33 | NUR ---
SHIFT SUMMARY PT COMPLAINING OF DIFFICULTY SWALLOWING. PT PASSED SPEECH EVAL & REQUESTED A FULL LIQUID DIET FOR EASIER SWALLOWING. PT UNABLE TO SWALLOW PILLS. PT HAS BEEN NAUSEATED TODAY AND VOMITED TWICE THIS SHIFT. IV ZOFRAN & PHENEGRAN GIVEN. PT CONTINUES TO HAVE AN ELEVATED HR AT 112. RESPIRATIONS DECREASED TO 20. OTHER VITALS STABLE. PT VISITED BY DR. MELENDEZ THIS AFTERNOON. FAMILY AT BEDSIDE. PARACENTESIS NOT NEEDED. PT HAS BEEN SLEEPY TODAY AND MEDICATED FOR PAIN NEEDED. REPOSITIONED NEEDED WELL. WILL CONTINUE TO MONITOR UNTIL TURNOVER IS COMPLETE.
--- NOTE | 2018-11-30 07:30 | NUR ---
a+o, bloody stool zak blood, call light in reach, still unable to swallow NPO since 0600, walking rounds completed with day staff, moved frquently to alive pain in coccy
--- NOTE | 2018-11-30 10:45 | NUR ---
INTO SDS VIA Ceregene. PT A&0X3. DENIES PAIN AT THIS TIME. History, Chart, Medications and Allergies reviewed before start of procedure. NPO STATUS CONFIRMED. NO BP OR IV TO RIGHT ARM. MEDIPORT ACCESSED-SITE CLEAR-GOOD BLOOD RETURN AND FLUSHES WELL.SKIN APPEARS PALE.
--- NOTE | 2018-11-30 10:58 | NUR ---
11/30/18 1058 Christopher Araya PATIENT DETERMINED TO BE ASA APPROPRIATE FOR PROPOFOL SEDATION PRIOR TO START OF PROCEDURE BY DR. Jaxon Jones Placed3-LEAD EKG REVIEWED WITH PHYSICIAN PRIOR TO START OF PROCEDURE.Patient to ENDO 1History, Chart, Medications and Allergies reviewed before start of procedure.MONITOR INTACT WITH CONTINUOUS PULSE OXIMETRY AND INTERMITTENT BP.O2 VIA N/C INTACT THROUGHOUT SEDATION/PROCEDURE.
[2018-11-30 11:38] LABS: Hematocrit 30.9 % (37.0-53.0); Hemoglobin 10.3 g/dL (13.5-17.5); Mean Corpuscular HGB 30.2 pg (26.0-34.0); Mean Corpuscular HGB Conc 33.3 g/dL (31.5-36.5); Mean Corpuscular Volume 91 fL (80-100); Mean Platelet Volume 10.2 fL (9.1-12.4); NRBC Auto 2.5 /100 WBC (0.0-0.2); Platelet Count 80 K/mm3 (150-400); RDW Coefficient Variation 16.6 % (11.7-14.2); Red Blood Cell Count 3.41 M/mm3 (4.30-5.90); White Blood Cell Count 20.08 K/mm3 (4.00-11.30)
[2018-11-30 11:50] LABS: Alanine Aminotransfer (ALT/SGP 63 U/L (12-78); Albumin/Globulin Ratio 0.7 (0.8-1.8); Alk Phos 274 U/L (50-136); Anion Gap 11 mmol/L (6-16); Aspartate Aminotrans (AST/SGOT 49 U/L (12-37); Bilirubin, Total 0.6 mg/dL (0.1-1.0); Blood Urea Nitrogen 19 mg/dL (8-24); Bun/Creatinine Ratio 27.5 (12.0-20.0); CO2, Blood 24 mmol/L (21-32); Chloride, Blood 102 mmol/L (98-108); Creatinine, Blood 0.69 mg/dL (0.60-1.20); Glomerular Filtration Rate >60 (60-); Glucose, Blood 86 mg/dL (70-99); Potassium, Blood 3.9 mmol/L (3.5-5.5); Sodium, Blood 137 mmol/L (136-145)
[2018-11-30 11:58] LABS: International Normalized Ratio 1.25
[2018-11-30 12:07] LABS: BAND PERCENT MAN 14 % (0-8); BASOPHILS PERCENT MAN 0 % (0-2); EOSINOPHILS PERCENT MAN 0 % (0-6); LYMPHOCYTES PERCENT MAN 8 % (21-46); METAMYELOCYTE PERCENT MAN 5 % (0-0); MONOCYTES PERCENT MAN 2 % (4-13); NEUTROPHILS ABSOLUTE MAN 15.66 K/mm3 (1.96-9.15); SEG NEUTROPHILS PERCENT MAN 64 % (41-73); TOTAL CELLS COUNTED 100
[2018-11-30 12:08] LABS: MYELOCYTE PERCENT MAN 7 % (0-0)
--- NOTE | 2018-11-30 12:08 | NUR ---
BROUGHT TO [facility] ADMISSION STARTED. WHEN DR BONILLA GOT HERE INFORMED PATINET WE COULD NOT PPRCEED WITH PROCEDURE UNTIL LAB WORK WAS DONE. PATIENT RETURNED TO MED FLOOR UNTILL RESULTS OF TEST
--- NOTE | 2018-11-30 19:10 | NUR ---
SHIFT SUMMARY: NO ACUTE CHANGES TO REPORT THIS SHIFT. PT A&O; CALM AND COOPERATIVE WITH CARE. SWALLOWING DIFFICULTIES; EGD TODAY; FOLLOW-UP EGD SCHEDULED FOR 12/01 IN AM; PT NPO; CLINIMIX @ 100; NS @ 50. PREVENTATIVE MEPILEX TO COCCYX. REPORT GIVEN TO ONCOMING RN.
--- NOTE | 2018-12-01 05:29 | NUR ---
VSS, AFEBRILE, A/O, MEDIPORT R CHEST FOR IVF AND BLOOD DRAWS, NS @ 50, CLINIMIX DURING DAY, RED AREA ON COCCYX, MEPLEX IN PLACE, EGD TODAY AROUND 10 A.M., NO COMPLAINTS, SLEPT WELL
[2018-12-01 05:32] LABS: Hematocrit 30.7 % (37.0-53.0); Hemoglobin 10.2 g/dL (13.5-17.5); Mean Corpuscular HGB 30.4 pg (26.0-34.0); Mean Corpuscular HGB Conc 33.2 g/dL (31.5-36.5); Mean Corpuscular Volume 92 fL (80-100); NRBC ABSOLUTE 0.37 K/mm3 (0.00-0.02); NRBC Auto 1.8 /100 WBC (0.0-0.2); Platelet Count 77 K/mm3 (150-400); RDW Standard Deviation 53.7 fL (35.1-46.3); Red Blood Cell Count 3.35 M/mm3 (4.30-5.90); White Blood Cell Count 20.36 K/mm3 (4.00-11.30)
[2018-12-01 05:54] LABS: BAND PERCENT MAN 12 % (0-8); BASOPHILS PERCENT MAN 1 % (0-2); EOSINOPHILS PERCENT MAN 0 % (0-6); LYMPHOCYTES PERCENT MAN 1 % (21-46); METAMYELOCYTE ABSOLUTE MAN 0.81 K/mm3 (0.00-0.00); METAMYELOCYTE PERCENT MAN 4 % (0-0); MONOCYTES ABSOLUTE MAN 1.22 K/mm3 (0.16-1.47); MONOCYTES PERCENT MAN 6 % (4-13); MYELOCYTE ABSOLUTE MAN 2.03 K/mm3 (0.00-0.00); MYELOCYTE PERCENT MAN 10 % (0-0); NEUTROPHILS ABSOLUTE MAN 15.67 K/mm3 (1.96-9.15); PROMYELOCYTE PERCENT MAN 1 % (0-0); SEG NEUTROPHILS PERCENT MAN 65 % (41-73); TOTAL CELLS COUNTED 100
[2018-12-01 05:58] LABS: Magnesium, Blood 1.8 mg/dL (1.6-2.4)
[2018-12-01 06:01] LABS: Alanine Aminotransfer (ALT/SGP 54 U/L (12-78); Albumin, Blood 1.9 g/dL (3.4-5.0); Albumin/Globulin Ratio 0.7 (0.8-1.8); Alk Phos 262 U/L (50-136); Anion Gap 10 mmol/L (6-16); Aspartate Aminotrans (AST/SGOT 39 U/L (12-37); Bilirubin, Total 0.7 mg/dL (0.1-1.0); Blood Urea Nitrogen 21 mg/dL (8-24); Bun/Creatinine Ratio 32.7 (12.0-20.0); CO2, Blood 25 mmol/L (21-32); Calcium, Blood 7.8 mg/dL (8.5-10.1); Chloride, Blood 102 mmol/L (98-108); Creatinine, Blood 0.64 mg/dL (0.60-1.20); Globulin, Blood 2.9 g/dL (2.2-4.0); Glomerular Filtration Rate >60 (60-); Glucose, Blood 128 mg/dL (70-99); Potassium, Blood 3.5 mmol/L (3.5-5.5); Sodium, Blood 137 mmol/L (136-145); Total Protein, Blood 4.8 g/dL (6.4-8.2)
--- NOTE | 2018-12-01 08:49 | NUR ---
History, Chart, Medications and Allergies reviewed before start of procedure. Patient confirms NPO status and agrees with scheduled surgery.
--- NOTE | 2018-12-01 09:13 | NUR ---
12/01/18 0913 Anastacia Dawson MONITOR INTACT WITH CONTINUOUS PULSE OXIMETRY AND INTERMITTENT BP. PATIENT DETERMINED TO BE ASA APPROPRIATE FOR PROPOFOL SEDATION PRIOR TO START OF PROCEDURE BY DR. BONILLA. 3-LEAD EKG REVIEWED WITH PHYSICIAN PRIOR TO START OF PROCEDURE.
--- NOTE | 2018-12-01 14:29 | NUR ---
Initial Visit: Palliative Care Consult for goals of care. Arrived to Pt's room and Pt is in bed and is having labored breathing, complains of being cold and appears significantly anxious. Pt's Suzette, son Terry, and daughter in law present during visit. reports the labored breathing and feeling cold started shortly before this RN's arrival. Reported to Pt's nurse Roldan. Roldan and this RN recorded vitals, saturations reading in the mid 80's, Temp 102, B/P significantly elevated, and respirations 36/min. Called Rapid Response. As the team attended to Pt this RN attended to tearful . Offered emotional support and explained to the process that was occuring and reassured her Pt was in good hands. Pt transfered to ICU. Walked with family to ICU waiting room and engaged in therapeutic conversation and listened to as she expressed concerns. reports Pt does not want to be intubated and is a DNR but is also hoping he is going to recover. She engaged in conversation about Pt's goals of care and explains that Dr Watson is optomistic in the treatment of Pt's cancer. reported that the Pt has spoken about when the treatment is no longer beneficial he would like to pass away at home with hospice. continues conversation and explain that the Pt experiences significant anxiety and his mind is alway working and occasionally will dwell on negative outcomes. reports the Pt takes ativan at home at bed time and is beneficial in managing his anxiety. Pt is of [employer] del and reports Pt would appreciate a visit from a network support. Ended visit at this time due to Pt being ready for family visit. Escorted family to Pt's room and instructed family and Pt this RN will be back to visit at a later time. Spoke with Pt's ICU nurse Chaz and he reports no concerns at this time and is agreeable for network support to visit with Pt and family. Plan is to F/U with Pt for therapeutic visits. Placed spiritual care consult for daily visits. Will remain available.
--- NOTE | 2018-12-01 15:16 | NUR ---
1350 PT ADMITTED TO ICU-3 VIA BED FOLLOWING SENIOR HR BUSINESS PARTNER. PT RR 35-40 AND ON BIPAP AT 14/7 AND 50% PT HAS BEEN ON CLIIMIX BUT WILL HOLD FOR NOW PENDING ABX AND IVP MEDS. PT IS A/O BUT FATIGUES AND HR IS 155 NOTED. IVP MEDS NOTED. FAMILY IS IN ROOM TO FOLLOW PT ARRIVAL. SEE VS. HOB IS 30% DUE TO PERSISTANT GASTRIC REFLUX. AFTER METOPROLOL IVP PT HR DOWN 25-30 POINTS AND RR SLOWING.
--- NOTE | 2018-12-01 15:40 | NUR ---
Pastoral care visit conducted. Pt in room accompanied by spouse and family members. Spouse expresses current thoughts and emotions related to the pt's circumstance and situation. Validating feedback and emotional guidance extended. Spouse requested prayer which was offered subsequently. I will remain available for further support prospectively.
--- NOTE | 2018-12-01 18:25 | NUR ---
IV BOLUSES COMPLETE PER ORDERED, BP NOTED AND WILL FOLLOW FOR MAINTANCE ORDER. PT REMAINS ON BIPAP AT 14/7 AND NOW 40%. PT IS SLEEPING AND HR 108. WILL INQUIRE FOR MAINTANCE IVF ORDER AND F/U FLUIDS. 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 FAMILY IS OUT FOR THE TIME AND PT IS SLEEPING.
[2018-12-01 22:26] LABS: Source, Urine Catheter
[2018-12-01 22:28] LABS: Bilirubin, Urine Neg (Neg); Blood, Urine 1+ (Neg); Glucose Qualitative, Urine Neg (Neg); Ketones, Urine 2+ (Neg); Leukocyte Esterase, Urine 1+ (Neg); Nitrite, Urine Neg (Neg); Protein, Urine 1+ (Neg); Urobilinogen, Urine NORM (Normal); pH, Urine 6.5 (5.0-8.0)
[2018-12-01 22:33] LABS: Appearance, Urine Clear (Clear); Color, Urine Yellow (P-Yellow)
[2018-12-01 22:34] LABS: Bacteria Mod /hpf; Hyaline Casts 0-2 /lpf (0-2); Red Blood Cells, Urine 0-2 /hpf (0-2); Squamous Epithelial Cells Not Seen /hpf (Few)
[2018-12-02 04:37] LABS: BASOPHILS ABSOLUTE AUTO 0.14 K/mm3 (0.00-0.23); BASOPHILS PERCENT AUTO 1 % (0-2); Hematocrit 25.5 % (37.0-53.0); Hemoglobin 8.4 g/dL (13.5-17.5); LYMPHOCYTES ABSOLUTE AUTO 1.08 K/mm3 (0.84-5.20); LYMPHOCYTES PERCENT AUTO 6 % (21-46); MONOCYTES ABSOLUTE AUTO 0.92 K/mm3 (0.16-1.47); MONOCYTES PERCENT AUTO 5 % (4-13); Mean Corpuscular HGB 31.1 pg (26.0-34.0); Mean Corpuscular HGB Conc 32.9 g/dL (31.5-36.5); Mean Corpuscular Volume 94 fL (80-100); Mean Platelet Volume 10.6 fL (9.1-12.4); NRBC ABSOLUTE 0.12 K/mm3 (0.00-0.02); NRBC Auto 0.7 /100 WBC (0.0-0.2); Platelet Count 67 K/mm3 (150-400); RDW Coefficient Variation 17.4 % (11.7-14.2); RDW Standard Deviation 56.1 fL (35.1-46.3); White Blood Cell Count 17.16 K/mm3 (4.00-11.30)
[2018-12-02 04:39] LABS: EOSINOPHILS PERCENT AUTO 0 % (0-6); IMMATURE GRAN ABSOLUTE AUTO 2.84 K/mm3 (0.00-0.10); IMMATURE GRAN PERCENT AUTO 17 % (0-1); NEUTROPHILS ABSOLUTE AUTO 12.18 K/mm3 (1.96-9.15); NEUTROPHILS PERCENT AUTO 71 % (41-73)
[2018-12-02 04:52] LABS: BAND PERCENT MAN 11 % (0-8); BASOPHILS PERCENT MAN 0 % (0-2); EOSINOPHILS PERCENT MAN 0 % (0-6); LYMPHOCYTES ABSOLUTE MAN 0.68 K/mm3 (0.84-5.20); LYMPHOCYTES PERCENT MAN 4 % (21-46); METAMYELOCYTE ABSOLUTE MAN 0.51 K/mm3 (0.00-0.00); METAMYELOCYTE PERCENT MAN 3 % (0-0); MONOCYTES ABSOLUTE MAN 1.02 K/mm3 (0.16-1.47); MONOCYTES PERCENT MAN 6 % (4-13); MYELOCYTE ABSOLUTE MAN 0.51 K/mm3 (0.00-0.00); MYELOCYTE PERCENT MAN 3 % (0-0); NEUTROPHILS ABSOLUTE MAN 14.24 K/mm3 (1.96-9.15); PROMYELOCYTE ABSOLUTE MAN 0.17 K/mm3 (0.00-0.00); PROMYELOCYTE PERCENT MAN 1 % (0-0); SEG NEUTROPHILS PERCENT MAN 72 % (41-73); TOTAL CELLS COUNTED 100
[2018-12-02 04:54] LABS: Alanine Aminotransfer (ALT/SGP 41 U/L (12-78); Albumin, Blood 2.1 g/dL (3.4-5.0); Alk Phos 211 U/L (50-136); Anion Gap 9 mmol/L (6-16); Aspartate Aminotrans (AST/SGOT 33 U/L (12-37); Bilirubin, Total 0.8 mg/dL (0.1-1.0); Blood Urea Nitrogen 20 mg/dL (8-24); Bun/Creatinine Ratio 27.1 (12.0-20.0); CO2, Blood 23 mmol/L (21-32); Calcium, Blood 7.4 mg/dL (8.5-10.1); Chloride, Blood 108 mmol/L (98-108); Creatinine, Blood 0.74 mg/dL (0.60-1.20); Globulin, Blood 2.2 g/dL (2.2-4.0); Glomerular Filtration Rate >60 (60-); Glucose, Blood 182 mg/dL (70-99); Magnesium, Blood 1.9 mg/dL (1.6-2.4); Potassium, Blood 3.4 mmol/L (3.5-5.5); Sodium, Blood 140 mmol/L (136-145); Total Protein, Blood 4.3 g/dL (6.4-8.2)
--- NOTE | 2018-12-02 07:59 | NUR ---
[id number]: SLEEPING SOUNDLY AT INTERVALS, BiPAP TOLERATED W/ASLEEP. RR, SPO2 STABLE OFF BIPAP FOR ORAL CARE/BREAK. LUNG LARRY CLEAR ANTERIORLY ON BIPAP, CRACKLES 1/2 POSTERIORLY OFF BIPAP. COUGH WEAK, NONPRODUCTIVE. ENCOURAGED TURNING SIDE TO SIDE, NOT SLEEPING ON BACK . 2.5 CM EPIDERMAL DENUDED AREA NEAR COCCYX, SURROUNDING AREA REDDENED BUT BLANCHES. UP TO BEDSIDE COMMODE W/ MAX ASSIST, MOD BROWN DIARRHEA. ABLE TO BEAR WT, VERY TACHYPNIC. TAKING SIPS & CHIPS FOR DRY MOUTH, THIRST, OTHERWISE NPO. BP, HR WNL, NO ADDITIONAL FLUID OR VASOPRESSORS USED. TRIAL OFF BIPAP A.M., RR, SPO2 STABLE.
--- NOTE | 2018-12-02 10:23 | NUR ---
0800 PT IS A/O AND INDICATES HE RESTED WELL LAST PM. PT IS SETTING UP EATING AND INSTRUCTED TO EAT SLOWLY AND REMAIN IN 30 DEGREE POSITION FOR ASPIRATION RISK ISSUES. PT AWARE AND VERY COOPERATIVE WITH HIS CONDITION. PT HAS NOT REQUIRED ANY PRESSORS OVER NOT. IVF... CLINIMIX AT 100, TKO LR FOR ABX. IV'S THROUGHT MEDIPORT AND FRANCISCA PICC. PICC NOTED WITH SMALL AMOUT OF BLEEDING, WILL FOLLOW. BP IS SL ELEVATED THIS AM NOTED AND WILL FOLLOW. PT IS ON RA AND NO CRACKLES NOTED, JUST DIM. IN BASES.
[2018-12-02 13:20] LABS: Vancomycin, Trough 13.5 ug/mL (5.0-10.0)
--- NOTE | 2018-12-02 15:46 | NUR ---
PAT UP WITH GATE BELT TO BEDSIDE CAMODE. HAD A LARGE AMT OF LIQ BROWN BM. BED BATH AND LININ CHANGE DONE. TOOK A FEW SIPS OF A VANILLA MILK SHAKE BUT IMMEDIATELY NAUSEATED.
--- NOTE | 2018-12-02 15:52 | NUR ---
Mr. Lai was alone in room. He speaks very softly and has a gentle demeanor. He admits to being "a little" fearful, and responded well to prayer and spiritual direction. He loves his family and is most concerned with how his illness is effecting them. Assured him this concern is grounded in love and this appeared to calm him. I will continue to visit as schedule permits.
--- NOTE | 2018-12-02 17:55 | NUR ---
2 MORE VERY THIN LIQ MARION STOOLS. CALIZIME TO ANAL AREA AND MEPALEX TO COCCYX. RIGHT ARM CONTS TO BE VERY SWOLLEN. ASPERCREAME APPLIED. FAMILY AT BEDSIDE. STILL VERY NAUSEATED OCC. WAS JUST MED WITH REGLAN, ZOFRAN AND PROTONIX. ENTIRE BODY STILL EDEMATOUS.
--- NOTE | 2018-12-02 22:11 | NUR ---
PATIENT RESTING QUIETLY AWAKENS TO SLIGHT STIMULI. GENERALIZED EDEMA CONTINUES. JULIETTE PO WELL, NO NAUSEA AT THIS TIME. PATIENT ASSISTING WITH REPOSITIONING AND HS CARE.
--- NOTE | 2018-12-03 01:26 | NUR ---
PATIENT PLACED ON 2L/NC DUE TO BIOX 88-89% WHILE SLEEPING. PATIENT VERBALIZED HE DIDN'T WANT TO GO ON THE BIPAP.
[2018-12-03 03:39] LABS: BASOPHILS ABSOLUTE AUTO 0.16 K/mm3 (0.00-0.23); BASOPHILS PERCENT AUTO 1 % (0-2); Hematocrit 27.2 % (37.0-53.0); Hemoglobin 8.8 g/dL (13.5-17.5); LYMPHOCYTES PERCENT AUTO 8 % (21-46); MONOCYTES ABSOLUTE AUTO 1.77 K/mm3 (0.16-1.47); MONOCYTES PERCENT AUTO 9 % (4-13); Mean Corpuscular HGB 30.4 pg (26.0-34.0); Mean Corpuscular HGB Conc 32.4 g/dL (31.5-36.5); Mean Corpuscular Volume 94 fL (80-100); Mean Platelet Volume 11.6 fL (9.1-12.4); NRBC ABSOLUTE 0.13 K/mm3 (0.00-0.02); NRBC Auto 0.7 /100 WBC (0.0-0.2); Platelet Count 85 K/mm3 (150-400); RDW Coefficient Variation 18.2 % (11.7-14.2); RDW Standard Deviation 58.1 fL (35.1-46.3); Red Blood Cell Count 2.89 M/mm3 (4.30-5.90); White Blood Cell Count 18.76 K/mm3 (4.00-11.30)
[2018-12-03 03:40] LABS: EOSINOPHILS ABSOLUTE AUTO 0.01 K/mm3 (0.00-0.68); EOSINOPHILS PERCENT AUTO 0 % (0-6); IMMATURE GRAN ABSOLUTE AUTO 3.47 K/mm3 (0.00-0.10); IMMATURE GRAN PERCENT AUTO 19 % (0-1); NEUTROPHILS ABSOLUTE AUTO 11.95 K/mm3 (1.96-9.15); NEUTROPHILS PERCENT AUTO 64 % (41-73)
[2018-12-03 03:56] LABS: Alanine Aminotransfer (ALT/SGP 35 U/L (12-78); Albumin, Blood 1.9 g/dL (3.4-5.0); Albumin/Globulin Ratio 0.8 (0.8-1.8); Alk Phos 187 U/L (50-136); Anion Gap 8 mmol/L (6-16); Aspartate Aminotrans (AST/SGOT 28 U/L (12-37); Bilirubin, Total 0.4 mg/dL (0.1-1.0); Blood Urea Nitrogen 23 mg/dL (8-24); Bun/Creatinine Ratio 32.1 (12.0-20.0); CO2, Blood 25 mmol/L (21-32); Calcium, Blood 7.6 mg/dL (8.5-10.1); Chloride, Blood 107 mmol/L (98-108); Creatinine, Blood 0.72 mg/dL (0.60-1.20); Globulin, Blood 2.5 g/dL (2.2-4.0); Glomerular Filtration Rate >60 (60-); Glucose, Blood 163 mg/dL (70-99); Potassium, Blood 3.5 mmol/L (3.5-5.5); Sodium, Blood 140 mmol/L (136-145); Total Protein, Blood 4.4 g/dL (6.4-8.2)
[2018-12-03 04:01] LABS: BAND PERCENT MAN 13 % (0-8); BASOPHILS PERCENT MAN 0 % (0-2); EOSINOPHILS PERCENT MAN 0 % (0-6); LYMPHOCYTES ABSOLUTE MAN 1.87 K/mm3 (0.84-5.20); LYMPHOCYTES PERCENT MAN 10 % (21-46); METAMYELOCYTE ABSOLUTE MAN 0.93 K/mm3 (0.00-0.00); METAMYELOCYTE PERCENT MAN 5 % (0-0); MONOCYTES ABSOLUTE MAN 1.12 K/mm3 (0.16-1.47); MONOCYTES PERCENT MAN 6 % (4-13); MYELOCYTE ABSOLUTE MAN 0.56 K/mm3 (0.00-0.00); MYELOCYTE PERCENT MAN 3 % (0-0); NEUTROPHILS ABSOLUTE MAN 14.07 K/mm3 (1.96-9.15); PROMYELOCYTE ABSOLUTE MAN 0.18 K/mm3 (0.00-0.00); PROMYELOCYTE PERCENT MAN 1 % (0-0); SEG NEUTROPHILS PERCENT MAN 62 % (41-73); TOTAL CELLS COUNTED 100
--- NOTE | 2018-12-03 06:33 | NUR ---
SUMMARY PATIENT SLEEPING OFF AND ON T/O NIGHT. 2L/NC PLACED WHILE SLEEPING DUE TO BIOX DOWN TO 88% ON RA. GENERALIZED EDEMA CONTINUES, KEEPING RIGHT ARM ELEVATED ON PILLOWS. PATIENT NOT WANTING TO LAY ON HIS SIDE, SHIFTING SLIGHTLY T/O NIGHT TO RELIEVE PRESSURE
--- NOTE | 2018-12-03 07:50 | NUR ---
INITIAL ASSESSMENT: Pt resting in bed. Wakes to verbal stimulus. Biox 98% on 2L N/C. Removed oxygen. LS diminished in bases. HR reg. BT hypoactive. Abd distended but soft. Denies nausea at this time. VSS. Call light in reach. Will continue to monitor.
--- NOTE | 2018-12-03 13:54 | NUR ---
Pt visit this afternoon. He denies pain and dyspnea at this time. Slightly labored breathing noted as evidenced by work of breathing and Pt answering in 1 or 2 word sentences. He appears sleepy with eyes closing serveral times throughout the visit. Pt's Suzette present during visit. Suzette reports feeling optomistic and reports the Pt is feeling better. She states his nausea has improved and is able to keep food and fluids down. Pt and his report no concerns at this time. Spoke with Pt's nurse and she reports no concerns at this time. Will remain available.
[2018-12-03 14:03] LABS: Vancomycin, Trough 20.7 ug/mL (5.0-10.0)
--- NOTE | 2018-12-03 17:09 | NUR ---
Jason was surrounded by his adult children and grandkids. All were rather subdued. They asked for prayer at bedside and I was honored to comply. It is unclear to me pt's clinical path or wishes as he has not be open to this conversation. I will continue to visit as schedule permits.
--- NOTE | 2018-12-03 17:38 | NUR ---
SHIFT SUMMARY: Pt itting up in bed visiting with and physician. Pt was just C/O SOB and nausea. Biox 94% on RA. Was given breathing tx per orders and IV diaretics per orders. Pt states that he feels better after the breathing tx. LS with some fine crackles. HR reg with occ pvc's throughout the shift. PT has had 3 liquid brown BM's today. Morocho cath draining clear yellow urine. VSS. WIll report to night rn.
[2018-12-04 04:42] LABS: Hemoglobin 9.1 g/dL (13.5-17.5); Mean Corpuscular HGB 30.6 pg (26.0-34.0); Mean Corpuscular HGB Conc 32.5 g/dL (31.5-36.5); Mean Corpuscular Volume 94 fL (80-100); Mean Platelet Volume 11.3 fL (9.1-12.4); NRBC ABSOLUTE 0.11 K/mm3 (0.00-0.02); NRBC Auto 0.5 /100 WBC (0.0-0.2); Platelet Count 128 K/mm3 (150-400); RDW Coefficient Variation 18.6 % (11.7-14.2); RDW Standard Deviation 59.2 fL (35.1-46.3); Red Blood Cell Count 2.97 M/mm3 (4.30-5.90)
[2018-12-04 04:59] LABS: Albumin, Blood 1.9 g/dL (3.4-5.0); Anion Gap 8 mmol/L (6-16); Blood Urea Nitrogen 25 mg/dL (8-24); Bun/Creatinine Ratio 33.2 (12.0-20.0); CO2, Blood 25 mmol/L (21-32); Calcium, Blood 7.5 mg/dL (8.5-10.1); Chloride, Blood 106 mmol/L (98-108); Creatinine, Blood 0.75 mg/dL (0.60-1.20); Glomerular Filtration Rate >60 (60-); Glucose, Blood 120 mg/dL (70-99); Phosphorus, Blood 2.4 mg/dL (2.5-4.9); Potassium, Blood 3.3 mmol/L (3.5-5.5); Sodium, Blood 139 mmol/L (136-145)
[2018-12-04 05:18] LABS: BAND PERCENT MAN 6 % (0-8); BASOPHILS PERCENT MAN 0 % (0-2); EOSINOPHILS PERCENT MAN 0 % (0-6); LYMPHOCYTES ABSOLUTE MAN 1.04 K/mm3 (0.84-5.20); LYMPHOCYTES PERCENT MAN 5 % (21-46); METAMYELOCYTE ABSOLUTE MAN 0.83 K/mm3 (0.00-0.00); METAMYELOCYTE PERCENT MAN 4 % (0-0); MONOCYTES PERCENT MAN 1 % (4-13); MYELOCYTE ABSOLUTE MAN 1.25 K/mm3 (0.00-0.00); MYELOCYTE PERCENT MAN 6 % (0-0); NEUTROPHILS ABSOLUTE MAN 17.55 K/mm3 (1.96-9.15); SEG NEUTROPHILS PERCENT MAN 78 % (41-73); TOTAL CELLS COUNTED 100
--- NOTE | 2018-12-04 08:05 | NUR ---
Initial Assessment: Pt resting in bed. LS diminished in bases. HR reg. BT positive but hypoactive. Pulses palp. Edema throughout, especially RUE, and BLE. Pt A/O but states that he is very tired. Denies nausea, pain or SOB. Pt up to BSC then chair with 2 person assist. VSS. Call light in reach. Will monitor.
--- NOTE | 2018-12-04 19:18 | NUR ---
Met with spouse, Ирина, at bedside. Jason slept throughout visit. Ирина tells me that Oncologist has been "surprised" that pt's pancreatic tumor "has shrunk to 30% of what it was." She attributes this miracle to God. She verbalizes understanding that pancreatic cancer is usually fatal, and that their hope when starting treatment was to give Jason more quality time. That said, she believes that continued chemo may miraculously remove the cancer. She spoke at length about their children and grandkids. She also shared with me Jason's active lifestyle and how hard it has been for him to "be so sick these past few months." She did not mention metasticies. Ирина was very appreciative of prayer and spiritual affirmation. I will remain available.
--- NOTE | 2018-12-04 19:29 | NUR ---
SHIFT SUMMARY: Pt resting in bed at this time with at bedside. Pt has done well this shift. He was able to get up to BSC and then recliner chair this am with 2 person assist. Pt was also able to work with PT/OT today and tolerated well. he was very tired after this and dowsed the rest of the afternoon but would still wake to verabal stimulus. Pt has denied CP, SOB, Nausea and has had no emesis today. Pt has had 2 loose BM's today. VSS throughout shift. Report given to night RN and care transfered.
--- NOTE | 2018-12-04 20:34 | NUR ---
PM NOTE. ASSUMED CARE OF PT APROX 1900, PT IS A&O, AT BEDSIDE. PT WAS ADMITTED DUE TO WEAKNESS, PT HAS HX OF PANCREATIC CA AND CHEMO INFLITRATION TO THE RIGHT ARM. TELE INTACT, NSR W/PVCS IN THE 90'S, PT'S BP 130/37, 3-4+ PITTING EDEMA TO THE BLE TO UPPER THIGHS AND RUE, 1+-TRACE EDEMA TO THE RUE AND GENERALIZED. L/S CLEAR T/O BUT DIM IN BASES PT IS ON RA. BT PRESENT AND HYPOACTIVE, ABD IS DISTENED BUT SOFT AND NONTENDER TO PALP. CALL LIGHT IN REACH, BED IS LOCKED AND LOW WILL CONTINUE TO MONITOR.
[2018-12-05 03:42] LABS: Hematocrit 25.9 % (37.0-53.0); Hemoglobin 8.2 g/dL (13.5-17.5); Mean Corpuscular HGB 30.5 pg (26.0-34.0); Mean Corpuscular HGB Conc 31.7 g/dL (31.5-36.5); Mean Corpuscular Volume 96 fL (80-100); Mean Platelet Volume 11.2 fL (9.1-12.4); NRBC ABSOLUTE 0.03 K/mm3 (0.00-0.02); NRBC Auto 0.2 /100 WBC (0.0-0.2); Platelet Count 144 K/mm3 (150-400); RDW Standard Deviation 61.1 fL (35.1-46.3); Red Blood Cell Count 2.69 M/mm3 (4.30-5.90); White Blood Cell Count 16.44 K/mm3 (4.00-11.30)
[2018-12-05 04:01] LABS: BAND PERCENT MAN 4 % (0-8); BASOPHILS PERCENT MAN 0 % (0-2); EOSINOPHILS PERCENT MAN 0 % (0-6); LYMPHOCYTES ABSOLUTE MAN 0.82 K/mm3 (0.84-5.20); LYMPHOCYTES PERCENT MAN 5 % (21-46); METAMYELOCYTE ABSOLUTE MAN 0.49 K/mm3 (0.00-0.00); METAMYELOCYTE PERCENT MAN 3 % (0-0); MONOCYTES ABSOLUTE MAN 0.82 K/mm3 (0.16-1.47); MONOCYTES PERCENT MAN 5 % (4-13); MYELOCYTE ABSOLUTE MAN 1.15 K/mm3 (0.00-0.00); MYELOCYTE PERCENT MAN 7 % (0-0); NEUTROPHILS ABSOLUTE MAN 13.15 K/mm3 (1.96-9.15); SEG NEUTROPHILS PERCENT MAN 76 % (41-73); TOTAL CELLS COUNTED 100
[2018-12-05 04:02] LABS: Albumin, Blood 1.6 g/dL (3.4-5.0); Anion Gap 11 mmol/L (6-16); Blood Urea Nitrogen 23 mg/dL (8-24); Bun/Creatinine Ratio 28.4 (12.0-20.0); CO2, Blood 23 mmol/L (21-32); Calcium, Blood 7.8 mg/dL (8.5-10.1); Chloride, Blood 99 mmol/L (98-108); Creatinine, Blood 0.81 mg/dL (0.60-1.20); Glomerular Filtration Rate >60 (60-); Glucose, Blood 372 mg/dL (70-99); Potassium, Blood 5.1 mmol/L (3.5-5.5); Sodium, Blood 133 mmol/L (136-145)
--- NOTE | 2018-12-05 06:43 | NUR ---
SHIFT SUMMARY. NO ACUTE CHANGES NOTED THIS SHIFT. PT HAS BEEN REPOSITIONED Q2 HOURS. PT HAS BEEN MEDICATED FOR PAIN AND ANXEITY PER EMAR WITH GOOD RESULTS. PT DENIES ANY CHEST PIAN/PRESSURE. PT BECOMES SOB WITH ACTIVITY. PT COMPLAINED OF NAUSEA 1 TIME THIS SHIFT, HE WAS MEDICATED PER EMAR WTIH GOOD RESULTS. PT'S KENDALL IS PATENT AND DRAINING TO GRAVITY. PT'S MEDIPORT IS ACCESSED AND IS KVO W/NS. PT'S VS HAVE BEEN STABLE T/O SHIFT. CALL LIGHT IN REACH, BED IS LOCKED AND LOW WILL COTNINUE TO MONITOR UNTIL REPORT IS GIVEN TO ONCOMING RN.
--- NOTE | 2018-12-05 10:45 | NUR ---
UPON RETURNING FROM BREAK. PEER RN REPORTED PT WAS REPORTING CHEST PAIN. THIS RN WAS IN ROOM AND HAD ALREADY BEGUN GETTING VITALS, AND EKG. PMD AT BEDSIDE AT THIS TIME TO PROVIDE ORDERS. PT REPORTED THE PAIN TO BE A 6/10 THAT GOT WORSE WITH COUGH. AFTER GETTING EKG PT REPORTED THE PAIN TO BE BETTER. NO FURTHER INTERVENTIONS DONE AT THIS TIME WILL CONTINUE TO MONITOR.
--- NOTE | 2018-12-05 11:30 | NUR ---
Pateint was resting in bed but quickly awoke as I entered the patient's room. Patient struggled to communicate and appeared to be tired so I kept my visit to a minimum. I explored patient's shinto beliefs, provided companionship and prayer. Patient responded well to all interventions and expressed genuine gratitude for the visit and specifically for the prayer.
--- NOTE | 2018-12-05 19:36 | NUR ---
SHIFT SUMMARY ASSUMED CARE OF PT APPROX. 0700. PT A&O X4, ALTHOUGH EXCESSIVELY SLEEPING AT THIS TIME. ASSESSMENT COMPLETED, AND VITAL SIGNS STABLE. SHIFT PROGRESSED PT REMAINED EXCESSIVLEY SLEEPY BUT REMAINED ARROUSABLE. PT WORKED k[employer] BRIE[employer]. SHORTLY AFTER THIS PT BEGAN TO HAVE CHEST PAIN. EVENT DESCRIBED IN PREVIOUS NOTE. AFTER THIS PT HAD NO MORE EPISODES OF CHEST PAIN. PT USED BEDPAN NEEDED. KENDALL REMIAN IN PLACE, PATENT AND DRAINING. AT BEDSIDE THIS EVENING. PILLOWS ARE PLACED UNDER EXTREMITIES TO HELP WITH SWELLING. BED IN LOW POSITION, CALL LIGHT IN REACH AND PT DENIES ANY NEEDS AT THIS TIME. PETRONA CONTINUE TO MONITOR UNTIL HANDOFF TO BECKY KHOURY.
--- NOTE | 2018-12-05 20:43 | NUR ---
PM NOTE. ASSUMED CARE OF PT APROX 1900, PT IS A&Ox4 PLEASENT AND COPERATIVE WITH CARE, PT'S IS AT THE BEDSIDE. PT APPEARES MORE WITHDRAWN TONIGHT THAN HE DID PRIOR SHIFT. TELE INTACT, NSR W/PVCS IN THE 80'S PER VETERINARY SCIENCE TEACHER. PT'S BP 117/73. PT HAS 3+ PITTING EDEMA IN THE LLE AND 2+ PITTING IN THE RLE, PT HAS GENERALIZED 3+ PITTING FROM HIS UPPER CHEST DOWN TO HIS FEET. PT'S RIGHT ARM IS TENDER AND SWOLLEN DUE TO CHEMO INFILTRATE SEVERAL WEEKS AGO. BT PRESENT AND HYPOACTIVE, ABD IS FRIM BUT NONTENDER TO PALP. PT COMPLAINS OF N/V, MEDICATED PER EMAR WITH MINIMAL RESULTS, WILL CONTINUE TO MONITOR. L/S CLEAR BUT DIM IN THE BASES. PT IS ON RA AT 92% BUT HAS NC AT 2L PRN. CALL LIGHT IN REACH, BED IS LOCKED AND LOW WILL CONTINUE TO MONITOR.
--- NOTE | 2018-12-06 05:15 | NUR ---
SHIFT SUMMARY. NO ACUTE CHANGES NOTED, PT DENIES ANY CHEST PAIN/PRESSURE, N/V OR SOB AT THIS TIME. PT'S PICC LINE DRESSING WAS CHANGED PER PROTOCOL. PT'S KENDALL IS PATENT AND DRAINING TO GRAVITY. PT HAS BEEN TURNED Q 2 HOURS AND MEDICATED FOR PAIN PRN PER EMAR. CALL LIGHT IN REACH, BED IS LOCKED AND LOW WILL CONTINUE TO MONITOR UNTIL REPORT IS GIVEN TO ONCOMING RN.
[2018-12-06 06:18] LABS: Hematocrit 27.2 % (37.0-53.0); Hemoglobin 8.8 g/dL (13.5-17.5); Mean Corpuscular HGB 29.8 pg (26.0-34.0); Mean Corpuscular HGB Conc 32.4 g/dL (31.5-36.5); Mean Platelet Volume 10.9 fL (9.1-12.4); NRBC ABSOLUTE 0.05 K/mm3 (0.00-0.02); NRBC Auto 0.3 /100 WBC (0.0-0.2); Platelet Count 201 K/mm3 (150-400); RDW Coefficient Variation 18.8 % (11.7-14.2); Red Blood Cell Count 2.95 M/mm3 (4.30-5.90); White Blood Cell Count 17.82 K/mm3 (4.00-11.30)
[2018-12-06 06:21] LABS: Mean Corpuscular Volume 92 fL (80-100)
[2018-12-06 06:41] LABS: Albumin, Blood 1.8 g/dL (3.4-5.0); Anion Gap 8 mmol/L (6-16); Blood Urea Nitrogen 26 mg/dL (8-24); Bun/Creatinine Ratio 31.4 (12.0-20.0); CO2, Blood 27 mmol/L (21-32); Calcium, Blood 7.9 mg/dL (8.5-10.1); Chloride, Blood 105 mmol/L (98-108); Creatinine, Blood 0.83 mg/dL (0.60-1.20); Glomerular Filtration Rate >60 (60-); Glucose, Blood 117 mg/dL (70-99); Potassium, Blood 3.4 mmol/L (3.5-5.5); Sodium, Blood 140 mmol/L (136-145)
[2018-12-06 06:47] LABS: Phosphorus, Blood 3.8 mg/dL (2.5-4.9)
[2018-12-06 06:49] LABS: BAND PERCENT MAN 2 % (0-8); BASOPHILS PERCENT MAN 0 % (0-2); EOSINOPHILS PERCENT MAN 0 % (0-6); LYMPHOCYTES ABSOLUTE MAN 0.89 K/mm3 (0.84-5.20); LYMPHOCYTES PERCENT MAN 5 % (21-46); METAMYELOCYTE ABSOLUTE MAN 0.35 K/mm3 (0.00-0.00); METAMYELOCYTE PERCENT MAN 2 % (0-0); MONOCYTES ABSOLUTE MAN 0.71 K/mm3 (0.16-1.47); MONOCYTES PERCENT MAN 4 % (4-13); MYELOCYTE ABSOLUTE MAN 0.71 K/mm3 (0.00-0.00); MYELOCYTE PERCENT MAN 4 % (0-0); NEUTROPHILS ABSOLUTE MAN 15.14 K/mm3 (1.96-9.15); SEG NEUTROPHILS PERCENT MAN 83 % (41-73); TOTAL CELLS COUNTED 100
--- NOTE | 2018-12-06 08:00 | NUR ---
PT PLEASANT QUIET. DENIES PAIN. A/O. H/R REG, NO MURMER NOTED. PER TELE: NSRA AT 98 WITH PVC'S LUNGS CLEAR UPPER, CRACKLES IN BASES. ON R/A. RESP EASY, UNLABORED. BT X4 LAST BM THIS AM. KENDALL CATH DRAINING CLEAR YELLOW FLUID. EDEMA NOTED: LEGS LEFT, +3, RT +2, RT ARM +2. BED IN LOW POSITION,,CALL LITE IN REACH, CALLS APPROP
--- NOTE | 2018-12-06 11:56 | NUR ---
TALKED TO DR CHOUDHARY OKAY REGULAR DIET
--- NOTE | 2018-12-06 18:33 | NUR ---
PT PLEASANT TODAY, AT BEDSIDE. CLINIMIX CHANGED TO CPN. HAS PICC LINE. DR BONILLA TALKED TO PT TODAY ABOUT DIET. NO OTHER CONCERNS AT THIS TIME. BED IN LOW POSITION, CALL LITE IN REACH, CALLS APPROP
[2018-12-06 20:51] LABS: Vancomycin, Trough 25.2 ug/mL (5.0-10.0)
[2018-12-07 04:34] LABS: Hematocrit 26.3 % (37.0-53.0); Hemoglobin 8.7 g/dL (13.5-17.5); Mean Corpuscular HGB 30.4 pg (26.0-34.0); Mean Corpuscular HGB Conc 33.1 g/dL (31.5-36.5); Mean Corpuscular Volume 92 fL (80-100); Mean Platelet Volume 11.1 fL (9.1-12.4); NRBC ABSOLUTE 0.03 K/mm3 (0.00-0.02); NRBC Auto 0.2 /100 WBC (0.0-0.2); Platelet Count 240 K/mm3 (150-400); RDW Coefficient Variation 18.6 % (11.7-14.2); RDW Standard Deviation 59.3 fL (35.1-46.3); Red Blood Cell Count 2.86 M/mm3 (4.30-5.90); White Blood Cell Count 18.07 K/mm3 (4.00-11.30)
[2018-12-07 04:36] LABS: Albumin, Blood 1.7 g/dL (3.4-5.0); Anion Gap 8 mmol/L (6-16); Blood Urea Nitrogen 27 mg/dL (8-24); Bun/Creatinine Ratio 31.2 (12.0-20.0); CO2, Blood 28 mmol/L (21-32); Calcium, Blood 7.9 mg/dL (8.5-10.1); Chloride, Blood 103 mmol/L (98-108); Creatinine, Blood 0.87 mg/dL (0.60-1.20); Glomerular Filtration Rate >60 (60-); Glucose, Blood 119 mg/dL (70-99); Potassium, Blood 3.4 mmol/L (3.5-5.5); Sodium, Blood 139 mmol/L (136-145)
[2018-12-07 05:42] LABS: BASOPHILS ABSOLUTE MAN 0.18 K/mm3 (0.00-0.23); BASOPHILS PERCENT MAN 1 % (0-2); EOSINOPHILS ABSOLUTE MAN 0.18 K/mm3 (0.00-0.68); EOSINOPHILS PERCENT MAN 1 % (0-6); LYMPHOCYTES ABSOLUTE MAN 0.72 K/mm3 (0.84-5.20); LYMPHOCYTES PERCENT MAN 4 % (21-46); METAMYELOCYTE PERCENT MAN 5 % (0-0); MONOCYTES PERCENT MAN 10 % (4-13); MYELOCYTE ABSOLUTE MAN 0.72 K/mm3 (0.00-0.00); MYELOCYTE PERCENT MAN 4 % (0-0); NEUTROPHILS ABSOLUTE MAN 13.37 K/mm3 (1.96-9.15); PROMYELOCYTE ABSOLUTE MAN 0.18 K/mm3 (0.00-0.00); PROMYELOCYTE PERCENT MAN 1 % (0-0); SEG NEUTROPHILS PERCENT MAN 74 % (41-73); TOTAL CELLS COUNTED 100
--- NOTE | 2018-12-07 05:49 | NUR ---
SHIFT SUMMARY PT ALERT AND ORIENTED X 3 THROUGHOUT SHIFT. HE WAS PLEASANT AND COOPERATIVE WITH VITALS AND ASSESSMENTS. PT WAS ABLE TO STAND AND TRANSFER TO CHAIR AND BSC WITH 2 PERSON TRANSFER. HE TOLERATED THIS WELL. PT DENIED ANY UNMET NEEDS, AND WAS ABLE TO APPROPRIATELY MAKE NEEDS KNOWN. HE HAD HIS CALL LIGHT WITHIN EASY REACH. PT HAS HIS BED IN THE LOWEST POSITION AND 2X SIDE RAILS INPLACE. PT HAD NO ACUTE CHANGES TO VITALS OR LOC DURING THE NIGHT. HE WILL CONTINUE TO BE MONITORED UNTIL HANDOFF TO DAYSHIFT RN.
--- NOTE | 2018-12-07 16:45 | NUR ---
SHIFT SUMMARY PT RESTING IN BED THROUGHOUT THE DAY. ALERT AND ORIENTED X3. C/O 6/10 ABDOMINAL PAIN, C/O NAUSEA WITH SOME VOMITING, MEDICATED WITH PRN ANTINAUSEA MEDS. LUNG SOUNDS CLEAR, DIMINISHED BASES. PT AND FAMILY STATED THAT PT WAS SUPPOSED TO HAVE PARACENTESIS YESTERDAY, BUT WASN'T ORDERED. ABDOMINAL ULTRASOUND DONE, PT IN NEED OF PARACENTESIS PER ULTRASOUND. PT TO ULTRASOUND FOR PARACENTESIS THIS AFTERNOON. PT HAS A VERY POOR APPETITE TODAY WITH SIGNIFICANT AMOUNTS OF NAUSEA. 2+ PITTING EDEMA TO BLE, EDEMA NOTED TO RIGHT ARM ALSO, BUT APPEARS TO BE IMPROVING. SCDs IN PLACE. AT BEDSIDE TODAY. WILL CONTINUE TO MONITOR.
--- NOTE | 2018-12-08 06:07 | NUR ---
SHIFT SUMMARY PT ALERT AND ORIENTED X 3 THROUGHOUT SHIFT. HE HAS BEEN PLEASANT AND COOPERATIVE WITH VITALS AND ASSESSMENTS. PT SLEPT OFF AND ON DURING THE NIGHT. HE HAD SOME COMPLAINTS OF BACK PAIN RELATED TO HIS BED, HE WAS FREQUENTLY REPOSITIONED AND WAS PROVIDED ORDERED PAIN MEDS. PT WAS ABLE TO MAKE NEEDS KNOWN AND USED HIS CALL LIGHT APPROPRIATELY. PT VITALS WERE STABLE T/O THE NIGHT WITH NO ACUTE CHANGES OBSERVED. HE HAS 2 X SIDE RAILS INPLACE, BED IN THE LOWEST POSITION AND CALL LIGHT WITHIN REACH. PT WAS ABLE TO STAND WITH 2 PERSON ASSIST AND STATES THAT HE IS FEELING BETTER. PT WILL CONTINUE TO BE MONITORED UNTIL HANDOFF TO DAYSHIFT RN.
[2018-12-08 08:51] LABS: Hematocrit 26.3 % (37.0-53.0); Hemoglobin 8.5 g/dL (13.5-17.5); Mean Corpuscular HGB 29.9 pg (26.0-34.0); Mean Corpuscular HGB Conc 32.3 g/dL (31.5-36.5); Mean Corpuscular Volume 93 fL (80-100); NRBC ABSOLUTE 0.02 K/mm3 (0.00-0.02); NRBC Auto 0.1 /100 WBC (0.0-0.2); Platelet Count 277 K/mm3 (150-400); RDW Coefficient Variation 18.5 % (11.7-14.2); RDW Standard Deviation 60.3 fL (35.1-46.3); Red Blood Cell Count 2.84 M/mm3 (4.30-5.90); White Blood Cell Count 15.66 K/mm3 (4.00-11.30)
[2018-12-08 09:14] LABS: Vancomycin, Trough 17.4 ug/mL (5.0-10.0)
[2018-12-08 09:25] LABS: BAND PERCENT MAN 4 % (0-8); BASOPHILS PERCENT MAN 0 % (0-2); EOSINOPHILS PERCENT MAN 0 % (0-6); LYMPHOCYTES ABSOLUTE MAN 0.93 K/mm3 (0.84-5.20); LYMPHOCYTES PERCENT MAN 6 % (21-46); METAMYELOCYTE ABSOLUTE MAN 0.62 K/mm3 (0.00-0.00); METAMYELOCYTE PERCENT MAN 4 % (0-0); MONOCYTES PERCENT MAN 9 % (4-13); MYELOCYTE ABSOLUTE MAN 0.15 K/mm3 (0.00-0.00); MYELOCYTE PERCENT MAN 1 % (0-0); NEUTROPHILS ABSOLUTE MAN 12.52 K/mm3 (1.96-9.15); SEG NEUTROPHILS PERCENT MAN 76 % (41-73); TOTAL CELLS COUNTED 100
[2018-12-08 09:30] LABS: Alanine Aminotransfer (ALT/SGP 24 U/L (12-78); Albumin, Blood 1.6 g/dL (3.4-5.0); Albumin/Globulin Ratio 0.5 (0.8-1.8); Alk Phos 209 U/L (50-136); Anion Gap 8 mmol/L (6-16); Aspartate Aminotrans (AST/SGOT 21 U/L (12-37); Bilirubin, Total 0.3 mg/dL (0.1-1.0); Blood Urea Nitrogen 26 mg/dL (8-24); Bun/Creatinine Ratio 31.3 (12.0-20.0); CO2, Blood 28 mmol/L (21-32); Calcium, Blood 7.5 mg/dL (8.5-10.1); Chloride, Blood 101 mmol/L (98-108); Creatinine, Blood 0.83 mg/dL (0.60-1.20); Globulin, Blood 3.4 g/dL (2.2-4.0); Glomerular Filtration Rate >60 (60-); Glucose, Blood 172 mg/dL (70-99); Phosphorus, Blood 3.3 mg/dL (2.5-4.9); Potassium, Blood 3.5 mmol/L (3.5-5.5); Sodium, Blood 137 mmol/L (136-145)
--- NOTE | 2018-12-08 19:38 | NUR ---
SHIFT SUMMARY PT RESTING IN BED THROUGHOUT THE DAY. VSS. ALERT AND ORIENTED X3. DENIES PAIN THIS AM. LUNG SOUNDS CLEAR, DIMINISHED BASES. 2+ PITTING EDEMA NOTED TO RIGHT HAND AND BLE. C/O NUMBNESS TO RIGHT HAND. LEFT PICC LINE FLUSHING WELL, RIGHT MEDIPORT FLUSHING WELL, NS AT TKO. TPN RUNNING AT 75 ML/HR TO PICC LINE. EVENING UPDATE PT C/O ABDOMEN FEELING FULL, BEING UNABLE TO EAT THIS EVENING, AND BECOMING MORE NAUSEATED. REQUESTING TO HAVE ANOTHER PARACENTESIS FARIDEH. WILL PASS ALONG TO NOC PASTE UP COPY CAMERA OPERATOR AND BEDSIDE RN.
--- NOTE | 2018-12-09 01:09 | NUR ---
PCU NIGHTSHIFT ASSUMED CARE OF PT APPROX. 0700. PT A&O 4. ASSESSMENT COMPLETED, VITAL SIGNS STABLE. PT AT BEDSIDE AT THIS TIME. KENDALL IN PLACE, INTACT, PATENT AND DRAINING. CPN CURRENTLY RUNNING. EDEMA IN BLE, ALTHOUGH WORSE IN LEFT LEG THAN RIGHT. EDEMA IN BUE ALTHOUGH WORSE IN RIGHT ARM. ADBDOMEN DISTENTED AND FIRM. BED IN LOW POSTION, CALL LIGHT IN REACH AND PT DENIES ANY NEEDS AT THIS TIME
[2018-12-09 03:35] LABS: BASOPHILS PERCENT AUTO 1 % (0-2); EOSINOPHILS ABSOLUTE AUTO 0.01 K/mm3 (0.00-0.68); EOSINOPHILS PERCENT AUTO 0 % (0-6); Hematocrit 26.4 % (37.0-53.0); Hemoglobin 8.5 g/dL (13.5-17.5); IMMATURE GRAN ABSOLUTE AUTO 0.67 K/mm3 (0.00-0.10); IMMATURE GRAN PERCENT AUTO 5 % (0-1); LYMPHOCYTES ABSOLUTE AUTO 1.67 K/mm3 (0.84-5.20); LYMPHOCYTES PERCENT AUTO 12 % (21-46); MONOCYTES ABSOLUTE AUTO 1.96 K/mm3 (0.16-1.47); MONOCYTES PERCENT AUTO 14 % (4-13); Mean Corpuscular HGB 30.1 pg (26.0-34.0); Mean Corpuscular HGB Conc 32.2 g/dL (31.5-36.5); Mean Corpuscular Volume 94 fL (80-100); Mean Platelet Volume 10.7 fL (9.1-12.4); NEUTROPHILS ABSOLUTE AUTO 9.81 K/mm3 (1.96-9.15); NEUTROPHILS PERCENT AUTO 69 % (41-73); Platelet Count 278 K/mm3 (150-400); RDW Coefficient Variation 18.3 % (11.7-14.2); RDW Standard Deviation 60.6 fL (35.1-46.3); Red Blood Cell Count 2.82 M/mm3 (4.30-5.90); White Blood Cell Count 14.22 K/mm3 (4.00-11.30)
[2018-12-09 03:50] LABS: Albumin, Blood 1.5 g/dL (3.4-5.0); Anion Gap 7 mmol/L (6-16); Blood Urea Nitrogen 28 mg/dL (8-24); Bun/Creatinine Ratio 32.9 (12.0-20.0); CO2, Blood 30 mmol/L (21-32); Calcium, Blood 7.8 mg/dL (8.5-10.1); Chloride, Blood 102 mmol/L (98-108); Creatinine, Blood 0.85 mg/dL (0.60-1.20); Glomerular Filtration Rate >60 (60-); Glucose, Blood 152 mg/dL (70-99); Phosphorus, Blood 3.5 mg/dL (2.5-4.9); Potassium, Blood 3.6 mmol/L (3.5-5.5); Sodium, Blood 139 mmol/L (136-145)
--- NOTE | 2018-12-09 04:58 | NUR ---
SHIFT SUMMMARY PT PLEASANT, COOPERATIVE, AND USES CALL LIGHT APPROPRIATELY. PT REMAINED A&O X4. VITAL SIGNS REMAIN STABLE. KENDALL REMAINS IN PLACE, PATENT AND DRAINING. PT HAD SOME INCREASED PAIN AND DISCOMFORT DUE TO FLUID IN ABDOMEN. PRN PAIN MEDICATION AND NAUSEA MEDICATION GIVEN PER EMAR. CPN CONTINUES TO RUN. PT WAS ABLE TO GET SOME REST DURING MY SHIFT. BED IN LOW POSITION, CALL LIGHT IN REACH AND PT DENIES ANY NEEDS AT THIS TIME. WILL CONTINUE TO MONITOR UNTIL HANDOFF TO DAYSHIFT RN.
--- NOTE | 2018-12-09 14:32 | NUR ---
TRANSFER NOTE PT RESTING IN BED THROUGHOUT THE DAY. VSS. PT TOLERATED PARACENTESIS WELL. 5L TAKEN OFF PER ULTRASOUND, ALBUMIN ORDERED AND STARTED. ALERT AND ORIENTED X3. LUNG SOUNDS CLEAR. ABDOMEN SOFT, BUT TENDER. 2+ PITTING EDEMA TO BLE. C/O NUMBNESS TO FINGERS. PT STABLE FOR TRANSFER TO SURGICAL FLOOR. REPORT CALLED TO JIMBO KHOURY ON SURGICAL FLOOR. PT TRANSFERED VIA BED TO MEDICAL FLOOR.
[2018-12-10 08:53] LABS: BASOPHILS ABSOLUTE AUTO 0.11 K/mm3 (0.00-0.23); BASOPHILS PERCENT AUTO 1 % (0-2); EOSINOPHILS ABSOLUTE AUTO 0.01 K/mm3 (0.00-0.68); EOSINOPHILS PERCENT AUTO 0 % (0-6); Hematocrit 30.4 % (37.0-53.0); Hemoglobin 9.7 g/dL (13.5-17.5); IMMATURE GRAN ABSOLUTE AUTO 0.44 K/mm3 (0.00-0.10); IMMATURE GRAN PERCENT AUTO 3 % (0-1); LYMPHOCYTES ABSOLUTE AUTO 1.58 K/mm3 (0.84-5.20); LYMPHOCYTES PERCENT AUTO 11 % (21-46); MONOCYTES ABSOLUTE AUTO 1.77 K/mm3 (0.16-1.47); MONOCYTES PERCENT AUTO 12 % (4-13); Mean Corpuscular HGB 30.6 pg (26.0-34.0); Mean Corpuscular HGB Conc 31.9 g/dL (31.5-36.5); Mean Corpuscular Volume 96 fL (80-100); Mean Platelet Volume 10.8 fL (9.1-12.4); NEUTROPHILS ABSOLUTE AUTO 10.59 K/mm3 (1.96-9.15); NEUTROPHILS PERCENT AUTO 73 % (41-73); NRBC ABSOLUTE 0.02 K/mm3 (0.00-0.02); NRBC Auto 0.1 /100 WBC (0.0-0.2); Platelet Count 336 K/mm3 (150-400); RDW Coefficient Variation 18.4 % (11.7-14.2); RDW Standard Deviation 63.7 fL (35.1-46.3); Red Blood Cell Count 3.17 M/mm3 (4.30-5.90)
[2018-12-10 09:09] LABS: Albumin, Blood 2.1 g/dL (3.4-5.0); Anion Gap 9 mmol/L (6-16); Blood Urea Nitrogen 26 mg/dL (8-24); Bun/Creatinine Ratio 28.3 (12.0-20.0); CO2, Blood 27 mmol/L (21-32); Calcium, Blood 8.1 mg/dL (8.5-10.1); Chloride, Blood 101 mmol/L (98-108); Creatinine, Blood 0.92 mg/dL (0.60-1.20); Glomerular Filtration Rate >60 (60-); Glucose, Blood 126 mg/dL (70-99); Phosphorus, Blood 3.2 mg/dL (2.5-4.9); Potassium, Blood 3.5 mmol/L (3.5-5.5); Sodium, Blood 137 mmol/L (136-145); Vancomycin, Trough 17.5 ug/mL (5.0-10.0)
--- NOTE | 2018-12-10 10:32 | NUR ---
Spiritual care visit conducted. Patient is known to me from prior visits. Patient shared about the emotional/spiritual orellana that, for him, surrounds his diagnosis. We discussed care options going forward, the toll this takes on his and the larger questions of "why?" I listened empathically, provided spiritual direction and prayer. Patient responded well to all interventions and showed signs of restored del. Patient expressed gratitude for my visit.
--- NOTE | 2018-12-11 04:57 | NUR ---
PICC LINE INFUSES BUT CANNOT DRAW BLOOD FROM CENTRAL LINE. LAB INFORMED CHANGED CAPS X 3
[2018-12-11 05:12] LABS: BASOPHILS ABSOLUTE AUTO 0.09 K/mm3 (0.00-0.23); BASOPHILS PERCENT AUTO 1 % (0-2); EOSINOPHILS ABSOLUTE AUTO 0.01 K/mm3 (0.00-0.68); EOSINOPHILS PERCENT AUTO 0 % (0-6); Hematocrit 27.1 % (37.0-53.0); Hemoglobin 8.8 g/dL (13.5-17.5); IMMATURE GRAN ABSOLUTE AUTO 0.29 K/mm3 (0.00-0.10); IMMATURE GRAN PERCENT AUTO 3 % (0-1); LYMPHOCYTES ABSOLUTE AUTO 1.63 K/mm3 (0.84-5.20); LYMPHOCYTES PERCENT AUTO 14 % (21-46); MONOCYTES ABSOLUTE AUTO 1.55 K/mm3 (0.16-1.47); MONOCYTES PERCENT AUTO 14 % (4-13); Mean Corpuscular HGB 30.2 pg (26.0-34.0); Mean Corpuscular HGB Conc 32.5 g/dL (31.5-36.5); Mean Platelet Volume 10.8 fL (9.1-12.4); NEUTROPHILS ABSOLUTE AUTO 7.78 K/mm3 (1.96-9.15); NEUTROPHILS PERCENT AUTO 68 % (41-73); Platelet Count 276 K/mm3 (150-400); RDW Coefficient Variation 18.2 % (11.7-14.2); RDW Standard Deviation 60.7 fL (35.1-46.3); Red Blood Cell Count 2.91 M/mm3 (4.30-5.90); White Blood Cell Count 11.35 K/mm3 (4.00-11.30)
[2018-12-11 05:13] LABS: Mean Corpuscular Volume 93 fL (80-100)
--- NOTE | 2018-12-11 05:47 | NUR ---
68 year old Male of [employer] 4 years service has pancreatic cancer with mets and malignant ascites has pain med x 1 for abd and back pain . on TPN via triple lumen PICC line. has hiccups, full liquid diet with minimal oral intake. Scheduled reglan for gastroparesis and prn zofran x 1 . up to [facility] with 2 assist med liquid brown stool. voids in urinal with no difficulty post pickens cath removal. on room air. scds applied and elevaed bilat le above heart level to decrease edeam with helpful effect. Spouse in last evening and supportive. has advanced directive and DNR status.
[2018-12-11 05:59] LABS: Albumin, Blood 1.8 g/dL (3.4-5.0); Anion Gap 7 mmol/L (6-16); Blood Urea Nitrogen 25 mg/dL (8-24); Bun/Creatinine Ratio 33.2 (12.0-20.0); CO2, Blood 29 mmol/L (21-32); Calcium, Blood 7.9 mg/dL (8.5-10.1); Chloride, Blood 100 mmol/L (98-108); Creatinine, Blood 0.75 mg/dL (0.60-1.20); Glomerular Filtration Rate >60 (60-); Glucose, Blood 151 mg/dL (70-99); Phosphorus, Blood 3.3 mg/dL (2.5-4.9); Potassium, Blood 3.5 mmol/L (3.5-5.5); Sodium, Blood 136 mmol/L (136-145)
--- NOTE | 2018-12-11 18:29 | NUR ---
SHIFT SUMMARY ONE EPISODE OF EMESIS AFTER LUNCH. FEELS NAUSEATED AFTER DINNER. WILL MEDICATE.
--- NOTE | 2018-12-12 05:55 | NUR ---
RESTING WITH EASE, ABLE TO AMBULATE INTO BATHROOM WITH STANDBY ASSIST AFTER HELP GETTING OOB. DENIES PAIN, DISCOMFORT, OR FURTHER NEEDS AT THIS TIME. SAFETY MEASURES IN PLACE. WILL GIVE HAND OFF TO ONCOMING SHIFT USING SBAR DURING BEDSIDE REPORT.
[2018-12-12 08:17] LABS: BASOPHILS ABSOLUTE AUTO 0.13 K/mm3 (0.00-0.23); BASOPHILS PERCENT AUTO 1 % (0-2); EOSINOPHILS ABSOLUTE AUTO 0.01 K/mm3 (0.00-0.68); EOSINOPHILS PERCENT AUTO 0 % (0-6); Hematocrit 27.9 % (37.0-53.0); IMMATURE GRAN ABSOLUTE AUTO 0.24 K/mm3 (0.00-0.10); IMMATURE GRAN PERCENT AUTO 2 % (0-1); LYMPHOCYTES ABSOLUTE AUTO 1.53 K/mm3 (0.84-5.20); LYMPHOCYTES PERCENT AUTO 15 % (21-46); MONOCYTES ABSOLUTE AUTO 1.31 K/mm3 (0.16-1.47); MONOCYTES PERCENT AUTO 12 % (4-13); Mean Corpuscular HGB 29.4 pg (26.0-34.0); Mean Corpuscular HGB Conc 32.3 g/dL (31.5-36.5); Mean Corpuscular Volume 91 fL (80-100); Mean Platelet Volume 11.1 fL (9.1-12.4); NEUTROPHILS ABSOLUTE AUTO 7.33 K/mm3 (1.96-9.15); NEUTROPHILS PERCENT AUTO 70 % (41-73); Platelet Count 278 K/mm3 (150-400); RDW Coefficient Variation 18.6 % (11.7-14.2); RDW Standard Deviation 59.7 fL (35.1-46.3); Red Blood Cell Count 3.06 M/mm3 (4.30-5.90); White Blood Cell Count 10.55 K/mm3 (4.00-11.30)
[2018-12-12 09:03] LABS: Vancomycin, Trough 18.7 ug/mL (5.0-10.0)
[2018-12-12 09:07] LABS: Anion Gap 7 mmol/L (6-16); Blood Urea Nitrogen 23 mg/dL (8-24); Bun/Creatinine Ratio 25.3 (12.0-20.0); CO2, Blood 28 mmol/L (21-32); Calcium, Blood 8.1 mg/dL (8.5-10.1); Chloride, Blood 101 mmol/L (98-108); Creatinine, Blood 0.91 mg/dL (0.60-1.20); Glomerular Filtration Rate >60 (60-); Glucose, Blood 74 mg/dL (70-99); Potassium, Blood 3.3 mmol/L (3.5-5.5); Sodium, Blood 136 mmol/L (136-145)
--- NOTE | 2018-12-12 10:09 | NUR ---
DR CHÁVEZ HERE TO SEE PT. FAMILY PRESENT. DR CHÁVEZ REPORTS TO NOT GIVE DOSE OF ABX.
--- NOTE | 2018-12-12 10:52 | NUR ---
OT RECENTLY WORKED WITH PT.
[2018-12-12] MEDS ORDERED: FURO20 PO (11:59)
[2018-12-12] MEDS ORDERED: PANT40 PO (11:59)
[2018-12-12] MEDS ORDERED: INSULANPEN SC (12:00)
[2018-12-12] MEDS ORDERED: Humalog100 UNIT/3 SC (12:02)
[2018-12-12] MEDS ORDERED: Melatonin5 M1 PO (12:03)
[2018-12-12] MEDS ORDERED: METO25 PO (12:04)
[2018-12-12] MEDS ORDERED: METO10 PO (12:06)
[2018-12-12] MEDS ORDERED: Aspercreme 1035.4 GM TOP (12:08)
[2018-12-12] MEDS ORDERED: ACET325 PO (12:10)
--- NOTE | 2018-12-12 14:10 | NUR ---
DISCHARGE: PT/FAMILY REPORTS UNDERSTANDING OF DISCHARGE INSTRUCTIONS. PT EATING, DRINKING, VOIDING. REPORTS RECENT BM. FAMILY REPORTS WILL ASSIST PT AT HOME. SCRIPTS SENT WITH PT INCLUDING WALKER. THREAT ANALYST ASSISTING WITH H.H.. OTHER RN ASSISTED WITH DISCHARGE PAPERWORK. PICC LINE WAS DC'D EARLIER TODAY AND APPEARS WNL. PT/FAMILY REPORTS FEELING READY TO GO HOME.
== END 2018-12-12 14:10 | disposition home health service (06) | DRG 871 ==
LOC: ER 16:14 → MEDS 16:15 → ICUE 11-29 14:59 → MEDS 11-29 14:59 → ICUE 12-01 13:47 → PCU 12-03 19:07 → SURS 12-09 15:00
PROVIDERS: Emergency Medicine; Family Medicine; Internal Medicine; Internal Medicine Critical Care Medicine; Internal Medicine Gastroenterology; ADMIT Hospitalist
PROC: 0DJ08ZZ Inspection of Upper Intestinal Tract, Via Natural or Artificial Opening Endoscopic (ICD-10-PCS; principal; 2018-11-30 10:00)
PROC: 0D778ZZ Dilation of Stomach, Pylorus, Via Natural or Artificial Opening Endoscopic (ICD-10-PCS; 2018-12-01)
PROC: 02HV33Z Insertion of Infusion Device into Superior Vena Cava, Percutaneous Approach (ICD-10-PCS; 2018-12-01)
PROC: 4A02X4A Measurement of Cardiac Electrical Activity, Guidance, External Approach (ICD-10-PCS; 2018-12-01)
PROC: 5A09357 Assistance with Respiratory Ventilation, Less than 24 Consecutive Hours, Continuous Positive Airway Pressure (ICD-10-PCS; 2018-12-01)
PROC: 0W9G3ZZ Drainage of Peritoneal Cavity, Percutaneous Approach (ICD-10-PCS; 2018-12-07)
PROC: 0W9G3ZZ Drainage of Peritoneal Cavity, Percutaneous Approach (ICD-10-PCS; 2018-12-09)
DX: A41.9 Sepsis, unspecified organism (principal); J69.0 Pneumonitis due to inhalation of food and vomit; J96.01 Acute respiratory failure with hypoxia; D61.810 Antineoplastic chemotherapy induced pancytopenia; C77.2 Secondary and unspecified malignant neoplasm of intra-abdominal lymph nodes; C25.8 Malignant neoplasm of overlapping sites of pancreas; R18.0 Malignant ascites; K22.10 Ulcer of esophagus without bleeding; E87.1 Hypo-osmolality and hyponatremia; I82.612 Acute embolism and thrombosis of superficial veins of left upper extremity; R65.20 Severe sepsis without septic shock; I10 Essential (primary) hypertension; E11.9 Type 2 diabetes mellitus without complications; T40.605A Adverse effect of unspecified narcotics, initial encounter; E86.1 Hypovolemia; T45.1X5A Adverse effect of antineoplastic and immunosuppressive drugs, initial encounter; E66.9 Obesity, unspecified; H90.5 Unspecified sensorineural hearing loss; G47.33 Obstructive sleep apnea (adult) (pediatric); E83.39 Other disorders of phosphorus metabolism; D69.6 Thrombocytopenia, unspecified; E87.6 Hypokalemia; Z66 Do not resuscitate; Z88.8 Allergy status to other drugs, medicaments and biological substances; Z79.01 Long term (current) use of anticoagulants; Z79.1 Long term (current) use of non-steroidal anti-inflammatories (NSAID); Z79.899 Other long term (current) drug therapy; Z68.29 Body mass index [BMI] 29.0-29.9, adult
CPT/HCPCS: 36415; 36569; 36591; 49083; 51702; 71045; 71046; 76705; 80048; 80053; 80069; 80202; 81001; 82947; 83010; 83605; 83615; 83735; 84100; 84145; 84484; 85025; 85055; 85379; 85610; 85730; 86301; 86900; 86901; 87040; 87086; 92610; 93005; 93010; 93306; 93971; 94640; 94660; 94760; 96361; 96374; 96375; 97110; 97162; 97165; 97530; 97535; 99285-25; C1726; C1751; C1894; C9113; G0378; J1200; J1642; J1940; J2060; J2405; J2543; J2550; J2765; J3010; J3370; J3480; J7030; J7040; J7050; J7060; J7120; P9035; P9041; P9046; Q0163

== ENCOUNTER 2018-12-13 13:58 | Day surgery (SDC) | payer MEDICARE ==
[~2018-12-13 13:58] MED LIST changes: +ACET325 PO; +Aspercreme 1035.4 GM TOP; +FENTANYL TD; +Humalog100 UNIT/3 SC; +INSULANPEN SC; +LORA.5 PO; +METO25 PO; +Melatonin5 M1 PO; +ONDA4ODT; +PANT40 PO; +PROM25 PO; +Senna-Docusate1 EACH PO; +XARELTO20 MG PO
== END 2018-12-14 23:16 | disposition home or self-care (01) ==
LOC: US 13:58
DX: C78.6 Secondary malignant neoplasm of retroperitoneum and peritoneum (principal); R18.0 Malignant ascites; C25.1 Malignant neoplasm of body of pancreas; C77.2 Secondary and unspecified malignant neoplasm of intra-abdominal lymph nodes; K86.81 Exocrine pancreatic insufficiency
CPT/HCPCS: 49083

== ENCOUNTER 2018-12-26 05:19 | Day surgery (SDC) | payer MEDICARE | END 2018-12-26 12:00 | disposition home or self-care (01) | LOC: ATC 05:19 | DX: C25.1 Malignant neoplasm of body of pancreas (principal); K86.81 Exocrine pancreatic insufficiency; E11.9 Type 2 diabetes mellitus without complications; Z79.4 Long term (current) use of insulin ==

== ENCOUNTER 2018-12-27 00:55 | Day surgery (SDC) | payer OTHER | END 2018-12-27 12:00 | disposition home or self-care (01) | LOC: US 00:55 | DX: C78.6 Secondary malignant neoplasm of retroperitoneum and peritoneum (principal); R18.0 Malignant ascites; C25.1 Malignant neoplasm of body of pancreas; C77.2 Secondary and unspecified malignant neoplasm of intra-abdominal lymph nodes; K86.81 Exocrine pancreatic insufficiency ==